=== PATIENT | female | born 1975 | race Caucasian/White ===

== ENCOUNTER 2021-06-22 00:25 | Emergency (ER) | payer MEDICAID, SELFPAY ==
--- NOTE | ~2021-06-22 | CT_ITS ---
EXAMINATION: CT ABDOMEN AND PELVIS WITH CONTRAST CLINICAL INFORMATION: Diarrhea, left-sided abdominal pain COMPARISON: None TECHNIQUE: Multidetector volumetric images were obtained from the superior aspect of the liver through the pubic symphysis following administration 85 mL of Omnipaque 350 intravenous contrast. Sagittal and coronal reformatted images were obtained on the technologist's workstation. Oral contrast: No This CT examination was performed using dose optimization techniques as appropriate, variously including the following: *Automated exposure control *Adjustment of mA and/or kV according to patient size (this includes techniques or standardized protocols for targeted exams where dose is matched to indication/reason for exam; i.e. extremities or head) *Use of iterative reconstruction technique DLP: 601 mGy-cm FINDINGS: LUNG BASES: There is a 3 mm left lower lobe nodule on image 9/90. LIVER, GALLBLADDER, AND BILIARY TREE: The liver is normal in size, shape, and attenuation. No focal hepatic lesion or biliary ductal dilatation is present. The gallbladder is unremarkable with no evidence of radiopaque gallstones, gallbladder wall thickening, or obvious pericholecystic inflammatory changes. PANCREAS: Unremarkable. SPLEEN: Unremarkable. ADRENAL GLANDS: Unremarkable. KIDNEYS AND URETERS: Bilateral nephrograms are symmetric. No hydronephrosis or obstructing calculus identified. BLADDER: There is diffuse mural prominence, suspected to be due to underdistention. GASTROINTESTINAL TRACT: Postoperative changes from gastric bypass surgery. There is fluid distention of several loops of small bowel as well as distention of much of the colon with gas and fluid. No significant bowel wall thickening is seen. Appendix appears nondilated. No free fluid or free air is seen. ABDOMINAL WALL: No significant hernia is appreciated. LYMPH NODES: Normal. VASCULAR: Unremarkable. PELVIC VISCERA: Unremarkable. OSSEOUS STRUCTURES: Multilevel endplate osteophytes are present in the spine. CT/CT abdomen pelvis w con IMPRESSION: 1. Distention of segments of small and large bowel, more suggestive of ileus than obstruction. No significant bowel wall thickening identified. Status post gastric bypass surgery. 2. Left lower lobe 3 mm lung nodule, nonspecific. According to the UPDATED 2017 Fleischner Society recommendations, the advised follow-up imaging for solid nodules < 6 mm is: LOW RISK PATIENT: No routine follow-up. HIGH RISK PATIENT: Optional CT at 12 months. Fleischner guidelines were followed.
[2021-06-22 00:35] VITALS: BP 147/77; PULSE 64; RESP 14; TEMP 36.4; O2SAT 98; BMI 28.1
--- NOTE | 2021-06-22 00:49 | ED.ABDPAIN ---
HPI - Abdominal Pain General Chief Complaint: Abdominal Pain Stated Complaint: abd pain & inflammation, n/d (gastric bypass pt) Time Seen by Provider: 06/22/21 00:46 Source: patient Mode of arrival: ambulatory Limitations: no limitations History of Present Illness MD elicited complaint: abdominal pain Pertinent past history: other (gastric bypass 3 years ago [facility] [place] Onset (ago): day(s) (Saturday) Pain Consistency: intermittent Location: LUQ Severity: moderate Quality: stabbing Radiation: LUQ Migration to: no migration Exacerbating factors: eating and movement Relieving factors: nothing Associated symptoms: nausea and diarrhea Related Data Previous Rx's Medication Instructions Recorded ondansetron 4 mg disintegrating 4 mg PO Q8H PRN #20 tab 06/22/21 tablet Allergies Allergy/AdvReac Type Severity Reaction Status Date / Time penicillin V Allergy Unknown throat Verified 02/10/14 00:00 closes up Penicillins [PENICILLINS] Allergy Unknown THROAT Unverified 01/28/20 17:40 CLOSES AND RASH Review of Systems Review of Systems Constitutional : No Weight loss, No Fever, No Chills ENT/Mouth : No sore throat, No Rhinorrhea Eyes: No Swelling, No Redness Cardiovascular : No Chest Pain, No SOB, NoEdema Respiratory : No Cough, No Sputum, No Wheezing Gastrointestinal : Positive Nausea, no Vomiting, positive Diarrhea, positive abdominal Pain, No Hematochezia, No Melena Genitourinary : No Dysuria, No Urinary Frequency, No Hematuria, No Urgency Musculoskeletal : No joint pain, No Myalgias, No Joint Swelling Skin : No Skin Lesions, No rash Neuro : No Weakness, No Numbness, No Dizziness, No Headache Psych : No Anxiety/Panic, No Depression Heme/Lymph: No Bruising, No Lymphadenopathy Endocrine : No Polyuria, No Polydipsia All other systems reviewed and are negative. Physical Exam Vital Signs: Vital Signs: Last Vital Signs Temp 98.2 F 06/22/21 00:52 Pulse 67 06/22/21 00:52 Resp 16 06/22/21 00:52 BP 155/81 H 06/22/21 00:52 Pulse Ox 99 06/22/21 00:52 BMI result Body Mass Index 28.1 Appearance: Alert. Oriented X3. No acute distress. Eyes: Pupils equal, round and reactive to light. ENT: Pharynx normal. Neck: Normal inspection. Neck supple. CVS: Normal heart rate and rhythm. Pulses normal. Respiratory: No respiratory distress. Breath sounds normal. Abdomen: Soft but noted mild distention - ttp in L side of abdomen no rebound Skin: Skin warm and dry. Normal skin color. Normal skin turgor. Extremities: No lower extremity edema. No calf ttp Neuro: Oriented X 3. No motor deficit. No sensory deficit. Course Course Course Narrative: patient with abdominal pain but passing stool, no vomiting, CT scan shows ileus not obstruction at this time message sent to bariatric PA Rigoberto Bruce 230am I wanted to admit the patient for IV hydration, clear liquids, pain control - she declines admission and wants to go home she will call her own surgeon today. I told her to return if the pain worsens as this could be an obstruction. MDM - Abdominal Pain MDM Narrative Medical decision making narrative: 45 yo female with hx of laparascopic gastric bypass 3 years ago notes she has done fine since then reports since Saturday intermittent LUQ pain and L sided pain that has worsened with diarrhea - no recent food exposures, sick contacts or antibiotic use. No prior colitis/diverticulitis. Labs, IVF x 2L, IV morphine for pain, CT scan for colitis/diverticulitis. Dispo per results and findings. Lab Data Result diagrams: 06/22/21 00:45 06/22/21 00:45 Labs: Lab Results 06/22/21 06/22/21 06/22/21 Range/Units 00:43 00:45 00:45 WBC 7.8 (4.8-10.8) X10*3/uL RBC 4.21 (4.20-5.50) X10*6/uL Hgb 11.2 L (12.0-16.0) g/dl Hct 35.1 L (37.0-47.0) % MCV 83.4 (80.0-98.0) fL MCH 26.6 L (27.0-33.0) pg MCHC 31.9 (31.0-35.0) g/dl RDW 13.4 (11.0-16.0) % Plt Count 341 (160-400) X10*3/uL MPV 10.3 (9.4-12.3) fL Immature Gran % (Auto) 0.1 (0.0-0.4) % Neut % (Auto) 49.0 (45-73) % Lymph % (Auto) 30.4 (20-40) % [place] % (Auto) 10.9 (2-11) % Eos % (Auto) 9.1 H (0-4) % Baso % (Auto) 0.5 (0-2) % Lymph # (Auto) 2.4 (1.2-4.9) X10*3/uL [place] # (Auto) 0.9 (0.1-1.2) X10*3/uL Eos # (Auto) 0.7 H (0.0-0.4) X10*3/uL Baso # (Auto) 0.0 (0.0-0.2) X10*3/uL Abs Immat Gran (auto) 0.01 (0.00-0.03) X10*3/uL Absolute Neuts (auto) 3.8 (2.0-8.3) x10*3/uL Absolute Nucleated RBC 0.000 (0.0-0.012) X10*3/uL Nucleated RBC % (auto) 0.0 (0.0-0.2) /100WBC Sodium 136 (135-145) mmol/L Potassium 3.8 (3.3-5.1) mmol/L Chloride 104 (96-108) mmol/L Carbon Dioxide 24 (22-29) mmol/L Anion Gap 12 (12-20) BUN 16 (9-16) mg/dL Creatinine 0.80 (0.5-1.4) mg/dL Estim Creat Clear Calc 87.7 Estimated GFR > 60 Random Glucose 109 (60-115) mg/dL Lactic Acid (0.5-2.0) mmol/L Calcium 9.2 (8.4-10.2) mg/dL Total Bilirubin 0.6 (0.0-1.0) mg/dL Direct Bilirubin 0.2 (0.0-0.5) mg/dL AST 24 (5-31) U/L ALT 17 (0-31) U/L Alkaline Phosphatase 81 (39-117) U/L Total Protein 7.0 (6.5-8.0) g/dL Albumin 4.1 (3.5-5.0) g/dL Lipase 31 (8-78) U/L Urine Color Urine Appearance Urine pH (5.0-8.0) Ur Specific [place] (1.005-1.025) Urine Protein (NEG-TRACE) MG/DL Urine Glucose (UA) (NEG) MG/DL Urine Ketones (NEG) MG/DL Urine Blood (NEG) Urine Nitrite (NEG) Ur Leukocyte Esterase (NEG) Urine Test (NEGATIVE) COVID-19 (JOSÉ MIGUEL) Negative (Negative) COVID-19 Clin Com See Note 06/22/21 06/22/21 06/22/21 Range/Units 01:26 01:26 01:26 WBC (4.8-10.8) X10*3/uL RBC (4.20-5.50) X10*6/uL Hgb (12.0-16.0) g/dl Hct (37.0-47.0) % MCV (80.0-98.0) fL MCH (27.0-33.0) pg MCHC (31.0-35.0) g/dl RDW (11.0-16.0) % Plt Count (160-400) X10*3/uL MPV (9.4-12.3) fL Immature Gran % (Auto) (0.0-0.4) % Neut % (Auto) (45-73) % Lymph % (Auto) (20-40) % [place] % (Auto) (2-11) % Eos % (Auto) (0-4) % Baso % (Auto) (0-2) % Lymph # (Auto) (1.2-4.9) X10*3/uL [place] # (Auto) (0.1-1.2) X10*3/uL Eos # (Auto) (0.0-0.4) X10*3/uL Baso # (Auto) (0.0-0.2) X10*3/uL Abs Immat Gran (auto) (0.00-0.03) X10*3/uL Absolute Neuts (auto) (2.0-8.3) x10*3/uL Absolute Nucleated RBC (0.0-0.012) X10*3/uL Nucleated RBC % (auto) (0.0-0.2) /100WBC Sodium (135-145) mmol/L Potassium (3.3-5.1) mmol/L Chloride (96-108) mmol/L Carbon Dioxide (22-29) mmol/L Anion Gap (12-20) BUN (9-16) mg/dL Creatinine (0.5-1.4) mg/dL Estim Creat Clear Calc Estimated GFR Random Glucose (60-115) mg/dL Lactic Acid 0.8 (0.5-2.0) mmol/L Calcium (8.4-10.2) mg/dL Total Bilirubin (0.0-1.0) mg/dL Direct Bilirubin (0.0-0.5) mg/dL AST (5-31) U/L ALT (0-31) U/L Alkaline Phosphatase (39-117) U/L Total Protein (6.5-8.0) g/dL Albumin (3.5-5.0) g/dL Lipase (8-78) U/L Urine Color YELLOW Urine Appearance HAZY Urine pH 5.5 (5.0-8.0) Ur Specific [place] >= 1.030 H (1.005-1.025) Urine Protein NEG (NEG-TRACE) MG/DL Urine Glucose (UA) NEG (NEG) MG/DL Urine Ketones 15 (NEG) MG/DL Urine Blood NEG (NEG) Urine Nitrite NEG (NEG) Ur Leukocyte Esterase NEG (NEG) Urine Test NEGATIVE (NEGATIVE) COVID-19 ([facility]OS[facility] MIGUEL) (Negative) COVID-19 Clin Com Discharge Plan Discharge Clinical Impression: Ileus Abdominal pain Qualifiers: Abdominal location: left upper quadrant Qualified Code(s): R10.12 - Left upper quadrant pain Patient Disposition: Home, Self-Care Instructions: Abdominal Pain (ED), Ileus (ED) Additional Instructions: return to ED for any worsening symptoms or concerns you were offered admission but declined. if your pain worsens please come back this could mean your bowel is obstructed. for the next 24 hours please stick to a clear liquid diet call your bariatric surgeon today 1.? Distention of segments of small and large bowel, more suggestive of ileus than obstruction. No significant bowel wall thickening identified. Status post gastric bypass surgery. 2.? Left lower lobe 3 mm lung nodule, nonspecific. According to the UPDATED 2017 Fleischner Society recommendations, the advised follow-up imaging for solid nodules < 6 mm is: ?? LOW RISK PATIENT: No routine follow-up. ?? HIGH RISK PATIENT: Optional CT at 12 months. Prescriptions: New ondansetron 4 mg tablet,disintegrating 4 mg PO Q8H PRN (Reason: nausea and vomiting) Qty: 20 0RF Stand Alone Forms: Work/School Release [facility]LY [facility] Past Medical History Attestation statement: The following information was validated with the patient. Medical History (Updated 06/22/21 @ 02:22 by Glo Azar DO) HTN (hypertension) Surgical History (Updated 06/22/21 @ 02:24 by Glo Azar DO) H/O gastric bypass Social History Social History (Updated 06/22/21 @ 01:04 by Glo Azar DO) Patient Tobacco Use Status: Never used Tobacco Advance Directives: No Patient : No
[2021-06-22 00:52] VITALS: BP 155/81; PULSE 67; RESP 16; TEMP 36.8; O2SAT 99
[2021-06-22 00:54] LABS: MANUAL DIFF FLAG NO
[2021-06-22 00:55] LABS: Basophils Percent Auto 0.5 % (0-2); Eosinophils Absolute Auto 0.7 X10*3/uL (0.0-0.4); Eosinophils Percent Auto 9.1 % (0-4); Hematocrit 35.1 % (37.0-47.0); Hemoglobin 11.2 g/dl (12.0-16.0); Imm Gran Abs Auto 0.01 X10*3/uL (0.00-0.03); Imm Gran Pct Auto 0.1 % (0.0-0.4); Lymphocytes Absolute Auto 2.4 X10*3/uL (1.2-4.9); Lymphocytes Percent Auto 30.4 % (20-40); Mean Corpuscular HGB Conc 31.9 g/dl (31.0-35.0); Mean Corpuscular Hemoglobin 26.6 pg (27.0-33.0); Mean Corpuscular Volume 83.4 fL (80.0-98.0); Mean Platelet Volume 10.3 fL (9.4-12.3); Monocytes Absolute Auto 0.9 X10*3/uL (0.1-1.2); Monocytes Percent Auto 10.9 % (2-11); Neutrophils Absolute Auto 3.8 x10*3/uL (2.0-8.3); Platelet Count 341 X10*3/uL (160-400); Red Blood Count 4.21 X10*6/uL (4.20-5.50); Red Cell Distribution Width 13.4 % (11.0-16.0); White Blood Count 7.8 X10*3/uL (4.8-10.8)
[2021-06-22 01:10] LABS: Alanine Aminotransferase 17 U/L (0-31); Albumin Level 4.1 g/dL (3.5-5.0); Alkaline Phosphatase 81 U/L (39-117); Anion Gap 12 (12-20); Aspartate Amino Transferase 24 U/L (5-31); Bilirubin Direct 0.2 mg/dL (0.0-0.5); Bilirubin Total 0.6 mg/dL (0.0-1.0); Blood Urea Nitrogen 16 mg/dL (9-16); Calcium 9.2 mg/dL (8.4-10.2); Carbon Dioxide 24 mmol/L (22-29); Chloride 104 mmol/L (96-108); Creatinine Clr Calc Pharmacy 87.7; Estimated Glomerular Filt Rate > 60; Glucose Random 109 mg/dL (60-115); Lipase 31 U/L (8-78); Potassium 3.8 mmol/L (3.3-5.1); Sodium 136 mmol/L (135-145)
[2021-06-22 01:14] LABS: COVID-19 Test Negative (Negative); IDNOW Serial# 9DD0AD1C
[2021-06-22] MEDS: 0.9 % Sodium Chloride 1,000 ML 999 ML IVCONT (01:32)
[2021-06-22] MEDS: Morphine Sulfate 4 MG/ML CARTRIDGE IVPUSH (01:35)
[2021-06-22] MEDS: ondansetron HCL 4 MG/2 ML VIAL IVPUSH (01:36)
[2021-06-22 01:38] LABS: Appearance Urine HAZY; Color Urine YELLOW; Glucose Urine UA NEG (NEG); Leukocyte Esterase Urine NEG (NEG); Nitrite Urine NEG (NEG); PH 5.5 (5.0-8.0); Specific Gravity - Urine >= 1.030 (1.005-1.025); Urine Blood NEG (NEG); Urine Ketones 15 MG/DL (NEG); Urine Protein NEG (NEG-TRACE)
[2021-06-22 01:39] LABS: UPreg QC Valid YES; Urine Pregnancy NEGATIVE (NEGATIVE)
[2021-06-22 01:49] LABS: Lactic Acid 0.8 mmol/L (0.5-2.0)
[2021-06-22] MEDS: iohexoL 350 MG/ML 100 ML INFUS..BTL 85 ML IV (01:56)
--- NOTE | 2021-06-22 03:29 | PC.NURSE ---
PATIENT NOT WANTING TO START FOR FURTHER TREATMENT. GIVEN IMAGING DISC FOR SURGEON
== END 2021-06-22 03:34 | disposition home or self-care (01) ==
PROVIDERS: Emergency Provider Emergency Medicine; PCP Internal Medicine
DX: K56.7 Ileus, unspecified (principal); R10.12 Left upper quadrant pain; Z98.84 Bariatric surgery status; Z79.899 Other long term (current) drug therapy; Z20.822 Contact with and (suspected) exposure to COVID-19
CPT/HCPCS: 36415; 74177; 80048; 80076; 81003; 81025; 83605; 83690; 85025; 87635; 96361; 96374; 96375; 99284; J2270; J2405; Q9967

== ENCOUNTER 2021-07-21 22:51 | Emergency (ER) | payer MEDICAID, SELFPAY ==
--- NOTE | ~2021-07-21 | XR_ITS ---
EXAMINATION: XR CHEST CLINICAL INFORMATION: Shortness of breath COMPARISON: 05/27/2019 TECHNIQUE: Frontal view of the chest was obtained. FINDINGS: Lung volumes are symmetric. No focal consolidation is seen. No evidence of pneumothorax, pleural effusion, or pulmonary edema. The cardiomediastinal contour is unremarkable. No acute osseous findings are seen. XR/XR chest 1V IMPRESSION: No acute cardiopulmonary findings.
[2021-07-21 22:59] VITALS: BP 185/97; PULSE 90; RESP 24; TEMP 36.5; O2SAT 95; BMI 27.9
--- NOTE | 2021-07-21 23:26 | ED_ITS ---
HPI - SOB/Dyspnea General Chief Complaint: Dyspnea Stated Complaint: diff. breathing Time Seen by Provider: 07/21/21 23:22 Source: patient Mode of arrival: ambulatory Limitations: no limitations History of Present Illness HPI Narrative: patient comes emergency room complaining of an asthma exacerbation. Patient states she has been having exacerbations throughout the last week, but today got worse. Patient used her inhaler and Advair prior to arrival. On arrival, patient feeling overall better. Related Data Previous Rx's Medication Instructions Recorded ondansetron 4 mg disintegrating 4 mg PO Q8H PRN #20 tab 06/22/21 tablet prednisone 50 mg tablet 50 mg PO DAILY #4 tab 07/21/21 albuterol sulfate 90 mcg/actuation 2 puff INHALATION Q4-6H PRN #8.5 g 07/22/21 aerosol inhaler Allergies Allergy/AdvReac Type Severity Reaction Status Date / Time penicillin V Allergy Unknown throat Verified 07/21/21 23:02 closes up Penicillins [PENICILLINS] Allergy Unknown THROAT Verified 07/21/21 23:02 CLOSES AND RASH Review of Systems Review of Systems: Constitutional : No Weight loss, No Fever, No Chills, No Night Sweats, No Fatigue, No Malaise ENT/Mouth : No Hearing loss, No Ear Pain, No Nasal Congestion, No Sinus Pain, No Hoarseness, No sore throat, No Rhinorrhea, No Swallowing Difficulty Eyes: No Eye Pain, No Swelling, No Redness, No Foreign Body, No Discharge, No Vision Changes Cardiovascular : No Chest Pain, , no orthopnea, no edema or palpitations Respiratory : Complaining of dry cough, wheezing, shortness of breath Gastrointestinal : No Nausea, No Vomiting, No Diarrhea, No Constipation, No abdominal Pain, No Hematochezia, No Melena Genitourinary : no irregular bleeding, No Dysuria, No Urinary Frequency, No Hematuria, No Urinary Incontinence, No Urgency, No Flank Pain, No Urinary Flow Changes, No Hesitancy Musculoskeletal : No joint pain, No Myalgias, No Joint Swelling Skin : No Skin Lesions, No rash Neuro : No Weakness, No Numbness, No Paresthesias, No Loss of Consciousness, No Dizziness, No Headache Psych : No Anxiety/Panic, No Depression, No SI/HI/AH/VH, No Social Issues, Heme/Lymph: No Bruising, No Bleeding,No Lymphadenopathy Endocrine : No Polyuria, No Polydipsia, No Temperature Intolerance FOR[facility]LY [facility] Past Medical History Medical History Asthma HTN (hypertension) Surgical History H/O gastric bypass Social History Social History (Updated 06/22/21 @ 01:04 by Glo Azar DO) Patient Tobacco Use Status: Never used Tobacco Advance Directives: No Advance Directives Information Provided: Yes Patient : No Physical Exam Vital Signs: Vital Signs: Last Vital Signs Temp 97.7 F 07/21/21 22:59 Pulse 82 07/21/21 23:36 Resp 20 07/21/21 23:36 BP 185/97 H 07/21/21 22:59 Pulse Ox 95 07/21/21 22:59 BMI result Body Mass Index 27.9 Const: Other: Appearance: Alert. Oriented X3. No acute distress. Eyes: Pupils equal, round and reactive to light. ENT: Pharynx normal. no erythema, no edema Neck: Normal inspection. Neck supple. No lymph nodes noted. No crepitus CVS: Normal heart rate and rhythm. Pulses normal. Normal S1 and S2 Respiratory: No respiratory distress. Breath sounds normal. very minimal wheezing, speaking in full sentences, good air movement Abdomen: Soft and nontender. No rigidity. No distention. Skin: Skin warm and dry. Normal skin color. Normal skin turgor. Extremities: No lower extremity edema. No Lacerations. No Rash Neuro: Oriented X 3. No motor deficit. No sensory deficit. Moving all extermities. No slurred speech. CN 2 through 12 grossly intact Course Course Course Narrative: patient receiving oral prednisone and breathing treatment. Patient receiving oral prednisone and was in nebulization treatment. Chest x-ray reviewed by me within normal limits MDM - SOB/Dyspnea Lab Data Labs: Lab Results 07/21/21 Range/Units 23:04 COVID-19 (JOS[facility] MIGUEL) Negative (Negative) COVID-19 Clin Com See Note Imaging Data Chest x-ray: Radiologist's impression: Lung volumes are symmetric. No focal consolidation is seen. No evidence of pneumothorax, pleural effusion, or pulmonary edema. The cardiomediastinal contour is unremarkable. No acute osseous findings are seen. XR/XR chest 1V IMPRESSION: No acute cardiopulmonary findings. Discharge Plan Discharge Clinical Impression: Asthma with exacerbation Patient Disposition: Home, Self-Care Instructions: Asthma (ED) Additional Instructions: Please follow-up with your primary care physician tomorrow. If you have any worsening or new symptoms, please return to the emergency room or call 911 Prescriptions: New prednisone 50 mg tablet 50 mg PO DAILY Qty: 4 0RF albuterol sulfate 90 mcg/actuation HFA aerosol inhaler 2 puff inhalation Q4-6H PRN (Reason: shortness of breath or wheezing) Qty: 8.5 1RF No Action ondansetron 4 mg tablet,disintegrating 4 mg PO Q8H PRN (Reason: nausea and vomiting) Qty: 20 0RF
[2021-07-21 23:34] LABS: COVID-19 Test Negative (Negative)
[2021-07-21 23:36] VITALS: PULSE 82; RESP 20; O2SAT 95
[2021-07-21] MEDS: Albuterol Sulfate (0.083%) 2.5 MG/3 ML VIAL.NEB 5 MG INHALE (23:36)
[2021-07-21] MEDS: predniSONE 20 MG TABLET 60 MG PO (23:46)
== END 2021-07-22 00:46 | disposition home or self-care (01) ==
PROVIDERS: Emergency Provider Emergency Medicine
DX: J45.901 Unspecified asthma with (acute) exacerbation (principal); I10 Essential (primary) hypertension; Z20.822 Contact with and (suspected) exposure to COVID-19
CPT/HCPCS: 71045; 87635; 94640; 94644; 99283; 99284

== ENCOUNTER 2022-02-24 12:30 | Emergency (ER) | payer MEDICAID, SELFPAY ==
--- NOTE | ~2022-02-24 | XR_ITS ---
EXAMINATION: XR CHEST CLINICAL INFORMATION: Chest pain COMPARISON: Chest 07/21/2021 TECHNIQUE: Frontal view of the chest was obtained. FINDINGS: No significant abnormality is noted involving the heart, lungs, mediastinum, bony thorax or soft tissues. XR/XR chest 1V IMPRESSION: Unremarkable chest examination.
--- NOTE | 2022-02-24 12:35 | ECG_ITS ---
Test Reason : CHEST PAIN Blood Pressure : / mmHG Vent. Rate : 068 BPM Atrial Rate : 068 BPM P-R Int : 152 ms QRS Dur : 074 ms QT Int : 396 ms P-R-T Axes : 062 058 046 degrees QTc Int : 421 ms Normal sinus rhythm Nonspecific ST abnormality Septal leads Abnormal ECG When compared with ECG of 30-JAN-2016 11:10, No significant change was found Referred By: Generic ED Physician Electronically Signed By:PRESTON CAROLINA MD
[2022-02-24 12:36] VITALS: BP 165/71; PULSE 68; RESP 16; TEMP 36.4; O2SAT 98; BMI 27.4
[2022-02-24 12:57] LABS: MANUAL DIFF FLAG NO
[2022-02-24 12:58] LABS: Basophils Absolute Auto 0.1 X10*3/uL (0.0-0.2); Basophils Percent Auto 0.9 % (0-2); Eosinophils Absolute Auto 0.4 X10*3/uL (0.0-0.4); Eosinophils Percent Auto 6.8 % (0-4); Hematocrit 31.6 % (37.0-47.0); Imm Gran Abs Auto 0.01 X10*3/uL (0.00-0.03); Imm Gran Pct Auto 0.2 % (0.0-0.4); Lymphocytes Percent Auto 34.4 % (20-40); Mean Corpuscular HGB Conc 31.6 g/dl (31.0-35.0); Mean Corpuscular Hemoglobin 25.1 pg (27.0-33.0); Mean Corpuscular Volume 79.2 fL (80.0-98.0); Mean Platelet Volume 9.5 fL (9.4-12.3); Monocytes Absolute Auto 0.7 X10*3/uL (0.1-1.2); Monocytes Percent Auto 12.1 % (2-11); Neutrophils Absolute Auto 2.7 x10*3/uL (2.0-8.3); Neutrophils Percent Auto 45.6 % (45-73); Platelet Count 347 X10*3/uL (160-400); Red Blood Count 3.99 X10*6/uL (4.20-5.50); Red Cell Distribution Width 15.9 % (11.0-16.0); White Blood Count 5.9 X10*3/uL (4.8-10.8)
[2022-02-24 13:07] LABS: Strep A Nucleic Acid Negative (Negative)
[2022-02-24 13:11] LABS: Anion Gap 13 (12-20); Blood Urea Nitrogen 12 mg/dL (9-16); Carbon Dioxide 27 mmol/L (22-29); Chloride 104 mmol/L (96-108); Creatinine Clr Calc Pharmacy 99.5; Estimated Glomerular Filt Rate > 60; Glucose Random 91 mg/dL (60-115); Potassium 3.9 mmol/L (3.3-5.1); Sodium 140 mmol/L (135-145)
[2022-02-24 13:18] LABS: Troponin-I High Sensitivity < 3.5 ng/L (<3.5-17.0)
[2022-02-24 13:44] LABS: COVID-19 Test Negative (Negative); IDNOW Serial# 16C4AD1C
[2022-02-24 15:11] VITALS: BP 166/85; PULSE 57; RESP 16; TEMP 36.6; O2SAT 98
--- NOTE | 2022-02-24 15:15 | PC.NURSE ---
Per RADHA Andino, pt does not need IV, will give oral steroids instead
--- NOTE | 2022-02-24 15:16 | ED_ITS ---
HPI - General Adult General Chief complaint: General Medical Stated complaint: cp, sore throat Time Seen by Provider: 02/24/22 15:02 Source: patient Mode of arrival: ambulatory Limitations: no limitations History of Present Illness HPI narrative: 46 yo female iwth history of asthma presents to the ER with 2 weeks of cold symptoms, worsening for the last 4 days. She states she has had a cough, sore throat, intermittent wheezing for the last few days. She has been using her albuterol inhaler. She has a dry cough and associated chest pains across her entire chest wall. She denies any fever or chills but generally feels unwell. She has joint and body aches. Denies any difficulty breathing or dyspnea on ex ertion. No nausea, vomiting, abdominal pain. MD complaint: Chest pain, cough, wheezing Onset (ago): week(s) (2) Location: chest and back Severity: moderate Quality: aching Pain Consistency: intermittent Relieving factors: rest Exacerbating factors: movement and other (Coughing) Associated symptoms: cough, headaches and malaise Treatments prior to arrival: none Related Data Previous Rx's Medication Instructions Recorded ondansetron 4 mg disintegrating 4 mg PO Q8H PRN nausea and 06/22/21 tablet vomiting #20 tabs prednisone 50 mg tablet 50 mg PO DAILY #4 tabs 07/21/21 albuterol sulfate 90 mcg/actuation 2 puff inhalation Q4-6H PRN 07/22/21 aerosol inhaler shortness of breath or wheezing #8.5 grams albuterol sulfate 90 mcg/actuation 1 inh inhalation QID PRN shortness 02/24/22 aerosol inhaler of breath or wheezing #6.7 grams azithromycin 250 mg tablet See Rx Instructions PO .COMPLEX #6 02/24/22 (Zithromax Z-Kendell) tabs benzonatate 100 mg capsule 100 mg PO TID PRN cough #30 caps 02/24/22 prednisone 20 mg tablet 40 mg PO DAILY #10 tabs 02/24/22 Allergies Allergy/AdvReac Type Severity Reaction Status Date / Time penicillin V Allergy Unknown throat Verified 07/21/21 23:02 closes up Penicillins [PENICILLINS] Allergy Unknown THROAT Verified 07/21/21 23:02 CLOSES AND RASH Review of Systems Review of Systems: Constitutional: No Fever, No Chills ENT/Mouth: + sore throat, No Rhinorrhea, No Swallowing Difficulty Eyes: No Eye Pain, No Swelling, No Redness Cardiovascular: + Chest Pain, No SOB, No Orthopnea, No Edema Respiratory: + Cough, No Sputum, + Wheezing, No dyspnea Gastrointestinal: No Nausea, No Vomiting, No Diarrhea, No abdominal Pain Genitourinary: No Dysuria, No Urinary Frequency, No Hematuria Musculoskeletal: No joint pain, + Myalgias Skin: No Skin Lesions, No rash Neuro: No Weakness, No Numbness, No Dizziness, + Headache Heme/Lymph: No Bruising, No Lymphadenopathy PMFSH Past Medical History Medical History Asthma HTN (hypertension) Surgical History H/O gastric bypass Social History Social History (Updated 06/22/21 @ 01:04 by Robyn Azar DO) Patient Tobacco Use Status: Never used Tobacco Advance Directives: No Advance Directives Information Provided: No Physical Exam ED Vital Signs: Vital Signs - 24 hr 02/24/22 12:36 02/24/22 15:11 02/24/22 15:49 Temperature 97.5 F 97.8 F Pulse Rate 68 57 59 Respiratory Rate 16 16 18 Blood Pressure 165/71 H 166/85 H Pulse Oximetry 98 98 Oxygen Delivery Method Room Air Room Air BMI result Body Mass Index 27.4 Appearance: Alert. Oriented X3. No acute distress. Eyes: Pupils equal, round and reactive to light. ENT: Pharynx normal. Neck: Normal inspection. Neck supple. CVS: Normal heart rate and rhythm. Pulses normal. Respiratory: No respiratory distress. Breath sounds with scattered expiratory wheezes throughout, speaks in complete sentences. Abdomen: Soft and nontender. +BS x4 Skin: Skin warm and dry. Normal skin color. Normal skin turgor. No rashes. Extremities: No lower extremity edema. No calf tenderness. Neuro: Oriented X 3. No motor deficit. No sensory deficit. Steady gait Course Course Course Narrative: 46-year-old female with history of mild intermittent asthma presents to the ER for evaluation of 2 weeks of URI symptoms, intermittent wheezing associated with cough and chest pain. On arrival to the ER she is afebrile, hemodynamically stable with expiratory wheezes throughout. She is not in respiratory distress and able to speak in complete sentences. Her initial lab workup from triage shows no leukocytosis. Troponin is negative an EKG without ischemic changes. Doubt cardiac etiology. Perc negative. Her chest x-ray is clear. She is negative for COVID. Given her duration of symptoms will also check a Monospot, influenza. Will treat her with a dose of oral steroids and 10 mg of inhaled albuterol. Anticipate discharge home. Reevaluation(s) Reevaluation #1: Aeration significantly improved after albuterol and steroids. She is feeling much better. She is stable for discharge home. Will treat for acute asthma exacerbation with steroids, Z-Kendell, Tessalon. She would like another albuterol inhaler for home. She is stable for DC, encourage follow-up with her PCP. Return precautions were discussed. Medical Decision Making Lab Data Result diagrams: 02/24/22 12:48 02/24/22 12:48 Labs: Lab Results 02/24/22 02/24/22 02/24/22 Range/Units 12:48 12:48 12:48 WBC 5.9 (4.8-10.8) X10*3/uL RBC 3.99 L (4.20-5.50) X10*6/uL Hgb 10.0 L (12.0-16.0) g/dl Hct 31.6 L (37.0-47.0) % MCV 79.2 L (80.0-98.0) fL MCH 25.1 L (27.0-33.0) pg MCHC 31.6 (31.0-35.0) g/dl RDW 15.9 (11.0-16.0) % Plt Count 347 (160-400) X10*3/uL MPV 9.5 (9.4-12.3) fL Immature Gran % (Auto) 0.2 (0.0-0.4) % Neut % (Auto) 45.6 (45-73) % Lymph % (Auto) 34.4 (20-40) % [place] % (Auto) 12.1 H (2-11) % Eos % (Auto) 6.8 H (0-4) % Baso % (Auto) 0.9 (0-2) % Lymph # (Auto) 2.0 (1.2-4.9) X10*3/uL [place] # (Auto) 0.7 (0.1-1.2) X10*3/uL Eos # (Auto) 0.4 (0.0-0.4) X10*3/uL Baso # (Auto) 0.1 (0.0-0.2) X10*3/uL Abs Immat Gran (auto) 0.01 (0.00-0.03) X10*3/uL Absolute Neuts (auto) 2.7 (2.0-8.3) x10*3/uL Absolute Nucleated RBC 0.000 (0.0-0.012) X10*3/uL Nucleated RBC % (auto) 0.0 (0.0-0.2) /100WBC Sodium 140 (135-145) mmol/L Potassium 3.9 (3.3-5.1) mmol/L Chloride 104 (96-108) mmol/L Carbon Dioxide 27 (22-29) mmol/L Anion Gap 13 (12-20) BUN 12 (9-16) mg/dL Creatinine 0.69 (0.5-1.4) mg/dL Estim Creat Clear Calc 99.5 Estimated GFR > 60 Random Glucose 91 (60-115) mg/dL Calcium 9.0 (8.4-10.2) mg/dL Troponin I High Sens < 3.5 (<3.5-17.0) ng/L COVID-19 ([facility]IGUEL) (Negative) COVID-19 Clin Com Monoscreen (Negative) Influenza Type A (SUE) (Negative) Influenza Type B (SUE) (Negative) Influenza A & B Note S. pyogenes GrpA SUE (Negative) 02/24/22 02/24/22 02/24/22 Range/Units 12:48 12:48 12:48 WBC (4.8-10.8) X10*3/uL RBC (4.20-5.50) X10*6/uL Hgb (12.0-16.0) g/dl Hct (37.0-47.0) % MCV (80.0-98.0) fL MCH (27.0-33.0) pg MCHC (31.0-35.0) g/dl RDW (11.0-16.0) % Plt Count (160-400) X10*3/uL MPV (9.4-12.3) fL Immature Gran % (Auto) (0.0-0.4) % Neut % (Auto) (45-73) % Lymph % (Auto) (20-40) % [place] % (Auto) (2-11) % Eos % (Auto) (0-4) % Baso % (Auto) (0-2) % Lymph # (Auto) (1.2-4.9) X10*3/uL [place] # (Auto) (0.1-1.2) X10*3/uL Eos # (Auto) (0.0-0.4) X10*3/uL Baso # (Auto) (0.0-0.2) X10*3/uL Abs Immat Gran (auto) (0.00-0.03) X10*3/uL Absolute Neuts (auto) (2.0-8.3) x10*3/uL Absolute Nucleated RBC (0.0-0.012) X10*3/uL Nucleated RBC % (auto) (0.0-0.2) /100WBC Sodium (135-145) mmol/L Potassium (3.3-5.1) mmol/L Chloride (96-108) mmol/L Carbon Dioxide (22-29) mmol/L Anion Gap (12-20) BUN (9-16) mg/dL Creatinine (0.5-1.4) mg/dL Estim Creat Clear Calc Estimated GFR Random Glucose (60-115) mg/dL Calcium (8.4-10.2) mg/dL Troponin I High Sens (<3.5-17.0) ng/L COVID-19 ([facility] MIGUEL) Negative (Negative) COVID-19 Clin Com See Note Monoscreen Negative (Negative) Influenza Type A (SUE) (Negative) Influenza Type B (SUE) (Negative) Influenza A & B Note S. pyogenes GrpA SUE Negative (Negative) 02/24/22 Range/Units 15:37 WBC (4.8-10.8) X10*3/uL RBC (4.20-5.50) X10*6/uL Hgb (12.0-16.0) g/dl Hct (37.0-47.0) % MCV (80.0-98.0) fL MCH (27.0-33.0) pg MCHC (31.0-35.0) g/dl RDW (11.0-16.0) % Plt Count (160-400) X10*3/uL MPV (9.4-12.3) fL Immature Gran % (Auto) (0.0-0.4) % Neut % (Auto) (45-73) % Lymph % (Auto) (20-40) % [place] % (Auto) (2-11) % Eos % (Auto) (0-4) % Baso % (Auto) (0-2) % Lymph # (Auto) (1.2-4.9) X10*3/uL [place] # (Auto) (0.1-1.2) X10*3/uL Eos # (Auto) (0.0-0.4) X10*3/uL Baso # (Auto) (0.0-0.2) X10*3/uL Abs Immat Gran (auto) (0.00-0.03) X10*3/uL Absolute Neuts (auto) (2.0-8.3) x10*3/uL Absolute Nucleated RBC (0.0-0.012) X10*3/uL Nucleated RBC % (auto) (0.0-0.2) /100WBC Sodium (135-145) mmol/L Potassium (3.3-5.1) mmol/L Chloride (96-108) mmol/L Carbon Dioxide (22-29) mmol/L Anion Gap (12-20) BUN (9-16) mg/dL Creatinine (0.5-1.4) mg/dL Estim Creat Clear Calc Estimated GFR Random Glucose (60-115) mg/dL Calcium (8.4-10.2) mg/dL Troponin I High Sens (<3.5-17.0) ng/L COVID-19 ([facility]IG[facility]EL) (Negative) COVID-19 Clin Com Monoscreen (Negative) Influenza Type A (SUE) Negative (Negative) Influenza Type B (SUE) Negative (Negative) Influenza A & B Note See Note S. pyogenes GrpA SUE (Negative) ECG Data Attestation: I personally reviewed and interpreted this ECG as follows: Prior ECG tracings: available for review Interpretation: Normal sinus rhythm, ventricular rate 60 beats per minute, normal [place] interval, normal QTC, no ST segment elevations or depressions. No significant change from prior. Discharge Plan Discharge Clinical Impression: Acute viral syndrome Patient Disposition: Home, Self-Care Instructions: Viral Syndrome (ED) Additional Instructions: You tested negative for COVID-19 and influenza a and B. Your chest x-ray was negative for pneumonia. Your lab workup was unremarkable. Take the prescribed antibiotic and steroid medication for your lungs. Continue to use your inhaler as needed for wheezing. Take [id number] cold and flu medications as needed for your symptoms. Follow-up with your doctor. If you develop new or worsening symptoms call 911 or come back to the ER for further evaluation. Prescriptions: New prednisone 20 mg tablet 40 mg PO DAILY Qty: 10 0RF azithromycin [Zithromax Z-Kendell] 250 mg tablet See Rx Instructions .ROUTE .COMPLEX Qty: 6 0RF Rx Instructions: take 500 mg today (day 1), then 250 mg for 4 days (days 2-5) benzonatate 100 mg capsule 100 mg PO TID PRN (Reason: cough) Qty: 30 0RF albuterol sulfate 90 mcg/actuation HFA aerosol inhaler 1 inh inhalation QID PRN (Reason: shortness of breath or wheezing) Qty: 6.7 0RF No Action prednisone 50 mg tablet 50 mg PO DAILY Qty: 4 0RF albuterol sulfate 90 mcg/actuation HFA aerosol inhaler 2 puff inhalation Q4-6H PRN (Reason: shortness of breath or wheezing) Qty: 8.5 1RF ondansetron 4 mg tablet,disintegrating 4 mg PO Q8H PRN (Reason: nausea and vomiting) Qty: 20 0RF Interventions: ED Discharge Assessment Last Done: 02/24/22 16:32 Discharge Date/Time: 02/24/22 16:33
[2022-02-24] MEDS: predniSONE 10 MG TABLET 50 MG PO (15:17)
[2022-02-24] MEDS: Acetaminophen 325 MG TABLET 975 MG PO (15:18)
[2022-02-24] MEDS: guaiFEN/Codeine SF 200/20/10ML 10 ML LIQUID PO (15:18)
[2022-02-24 15:31] LABS: Monotest Negative (Negative)
[2022-02-24] MEDS: Albuterol Sulfate 7.5 MG, Albuterol Sulfate (0.083%) 2.5 MG 10 MG INHALE (15:47)
[2022-02-24 15:49] VITALS: PULSE 59; RESP 18; O2SAT 96
[2022-02-24 16:08] LABS: Influenza A Negative (Negative); Influenza B2 Negative (Negative)
== END 2022-02-24 16:33 | disposition home or self-care (01) ==
PROVIDERS: Physician Assistant; Emergency Provider Emergency Medicine; PCP Internal Medicine
DX: B34.9 Viral infection, unspecified (principal); J02.9 Acute pharyngitis, unspecified; Z20.822 Contact with and (suspected) exposure to COVID-19; I10 Essential (primary) hypertension; J45.909 Unspecified asthma, uncomplicated; Z79.899 Other long term (current) drug therapy
CPT/HCPCS: 36415; 71045; 80048; 84484; 85025; 86308; 87502; 87635; 87651; 93005; 94640; 99284

== ENCOUNTER 2022-04-30 17:17 | Emergency (ER) | payer MEDICAID, SELFPAY ==
--- NOTE | ~2022-04-30 | XR_ITS ---
EXAMINATION: XR CHEST CLINICAL INFORMATION: Shortness of breath COMPARISON: None TECHNIQUE: 2 views of the chest were obtained. FINDINGS: No significant abnormality is noted involving the heart, lungs, mediastinum, bony thorax or soft tissues. XR/XR chest 2V IMPRESSION: Unremarkable chest examination.
[2022-04-30 18:04] VITALS: BP 187/81; PULSE 70; RESP 20; TEMP 36.8; O2SAT 98; BMI 27.4
--- NOTE | 2022-04-30 18:06 | ED_ITS ---
HPI - Asthma General Chief Complaint: Dyspnea Stated Complaint: chest and back pain sob Time Seen by Provider: 05/01/22 01:01 Related Data Previous Rx's Medication Instructions Recorded ondansetron 4 mg disintegrating 4 mg PO Q8H PRN nausea and 06/22/21 tablet vomiting #20 tabs prednisone 50 mg tablet 50 mg PO DAILY #4 tabs 07/21/21 albuterol sulfate 90 mcg/actuation 2 puff inhalation Q4-6H PRN 07/22/21 aerosol inhaler shortness of breath or wheezing #8.5 grams albuterol sulfate 90 mcg/actuation 1 inh inhalation QID PRN shortness 02/24/22 aerosol inhaler of breath or wheezing #6.7 grams azithromycin 250 mg tablet See Rx Instructions PO .COMPLEX #6 02/24/22 (Zithromax Z-Kendell) tabs benzonatate 100 mg capsule 100 mg PO TID PRN cough #30 caps 02/24/22 prednisone 20 mg tablet 40 mg PO DAILY #10 tabs 02/24/22 Allergies Allergy/AdvReac Type Severity Reaction Status Date / Time penicillin V Allergy Unknown throat Verified 07/21/21 23:02 closes up Penicillins [PENICILLINS] Allergy Unknown THROAT Verified 07/21/21 23:02 CLOSES AND RASH PMFSH Past Medical History Medical History Asthma HTN (hypertension) Surgical History H/O gastric bypass Social History Social History (Updated 06/22/21 @ 01:04 by Robyn Azar DO) Patient Tobacco Use Status: Never used Tobacco Advance Directives: No Advance Directives Information Provided: No Physical Exam Vital Signs: Vital Signs: Last Vital Signs Temp 98.1 F 04/30/22 22:28 Pulse 82 04/30/22 22:28 Resp 18 04/30/22 22:28 BP 152/64 H 04/30/22 22:28 Pulse Ox 98 04/30/22 22:28 O2 Del Method 04/30/22 22:28 BMI result Body Mass Index 27.4 Course Course Course Narrative: RME: Patient is a 46-year-old female who presents emergency department for evaluation of an asthma exacerbation. She reports symptom onset 1 week ago. Shortness of breath, difficulty breathing, coughing with posterior bilateral rib pain, chest pain during coughing episodes. She has been taking her home inhaler/nebulizer without significant improvement. Lung sounds are tight bilaterally, but does not appear in any distress. No hypoxia. Plan: Labs, chest x-ray, will require nebulizer treatment. Medical Decision Making Lab Data Result Diagrams: 04/30/22 19:11 04/30/22 19:10 Labs: Lab Results 04/30/22 04/30/22 04/30/22 Range/Units 19:10 19:10 19:11 WBC 10.3 (4.8-10.8) X10*3/uL RBC 4.21 (4.20-5.50) X10*6/uL Hgb 10.0 L (12.0-16.0) g/dl Hct 32.3 L (37.0-47.0) % MCV 76.7 L (80.0-98.0) fL MCH 23.8 L (27.0-33.0) pg MCHC 31.0 (31.0-35.0) g/dl RDW 14.7 (11.0-16.0) % Plt Count 393 (160-400) X10*3/uL MPV 10.1 (9.4-12.3) fL Immature Gran % (Auto) 0.4 (0.0-0.4) % Neut % (Auto) 54.5 (45-73) % Lymph % (Auto) 28.7 (20-40) % [place] % (Auto) 8.7 (2-11) % Eos % (Auto) 6.9 H (0-4) % Baso % (Auto) 0.8 (0-2) % Lymph # (Auto) 3.0 (1.2-4.9) X10*3/uL [place] # (Auto) 0.9 (0.1-1.2) X10*3/uL Eos # (Auto) 0.7 H (0.0-0.4) X10*3/uL Baso # (Auto) 0.1 (0.0-0.2) X10*3/uL Abs Immat Gran (auto) 0.04 H (0.00-0.03) X10*3/uL Absolute Neuts (auto) 5.6 (2.0-8.3) x10*3/uL Absolute Nucleated RBC 0.000 (0.0-0.012) X10*3/uL Nucleated RBC % (auto) 0.0 (0.0-0.2) /100WBC Sodium 136 (135-145) mmol/L Potassium 4.5 (3.3-5.1) mmol/L Chloride 106 (96-108) mmol/L Carbon Dioxide 20 L (22-29) mmol/L Anion Gap 15 (12-20) BUN 13 (9-16) mg/dL Creatinine 0.80 (0.5-1.4) mg/dL Estim Creat Clear Calc 85.8 Estimated GFR > 60 Random Glucose 163 H (60-115) mg/dL Calcium 9.2 (8.4-10.2) mg/dL Total Bilirubin 0.3 (0.0-1.0) mg/dL AST 31 (5-31) U/L ALT 18 (0-31) U/L Alkaline Phosphatase 102 (39-117) U/L Troponin I High Sens < 3.5 (<3.5-17.0) ng/L Total Protein 7.5 (6.5-8.0) g/dL Albumin 4.0 (3.5-5.0) g/dL COVID-19 ([facility]) (Negative) COVID-19 Clin Com Influenza Type A (SUE) (Negative) Influenza Type B (SUE) (Negative) Influenza A & B Note 04/30/22 04/30/22 Range/Units 19:14 19:14 WBC (4.8-10.8) X10*3/uL RBC (4.20-5.50) X10*6/uL Hgb (12.0-16.0) g/dl Hct (37.0-47.0) % MCV (80.0-98.0) fL MCH (27.0-33.0) pg MCHC (31.0-35.0) g/dl RDW (11.0-16.0) % Plt Count (160-400) X10*3/uL MPV (9.4-12.3) fL Immature Gran % (Auto) (0.0-0.4) % Neut % (Auto) (45-73) % Lymph % (Auto) (20-40) % [place] % (Auto) (2-11) % Eos % (Auto) (0-4) % Baso % (Auto) (0-2) % Lymph # (Auto) (1.2-4.9) X10*3/uL [place] # (Auto) (0.1-1.2) X10*3/uL Eos # (Auto) (0.0-0.4) X10*3/uL Baso # (Auto) (0.0-0.2) X10*3/uL Abs Immat Gran (auto) (0.00-0.03) X10*3/uL Absolute Neuts (auto) (2.0-8.3) x10*3/uL Absolute Nucleated RBC (0.0-0.012) X10*3/uL Nucleated RBC % (auto) (0.0-0.2) /100WBC Sodium (135-145) mmol/L Potassium (3.3-5.1) mmol/L Chloride (96-108) mmol/L Carbon Dioxide (22-29) mmol/L Anion Gap (12-20) BUN (9-16) mg/dL Creatinine (0.5-1.4) mg/dL Estim Creat Clear Calc Estimated GFR Random Glucose (60-115) mg/dL Calcium (8.4-10.2) mg/dL Total Bilirubin (0.0-1.0) mg/dL AST (5-31) U/L ALT (0-31) U/L Alkaline Phosphatase (39-117) U/L Troponin I High Sens (<3.5-17.0) ng/L Total Protein (6.5-8.0) g/dL Albumin (3.5-5.0) g/dL COVID-19 ([facility]IG[facility]) Negative (Negative) COVID-19 Clin Com See Note Influenza Type A (SUE) Negative (Negative) Influenza Type B (SUE) Negative (Negative) Influenza A & B Note See Note Discharge Plan Discharge Prescriptions: No Action prednisone 50 mg tablet 50 mg PO DAILY Qty: 4 0RF albuterol sulfate 90 mcg/actuation HFA aerosol inhaler 2 puff inhalation Q4-6H PRN (Reason: shortness of breath or wheezing) Qty: 8.5 1RF ondansetron 4 mg tablet,disintegrating 4 mg PO Q8H PRN (Reason: nausea and vomiting) Qty: 20 0RF prednisone 20 mg tablet 40 mg PO DAILY Qty: 10 0RF azithromycin [Zithromax Z-Kendell] 250 mg tablet See Rx Instructions .ROUTE .COMPLEX Qty: 6 0RF Rx Instructions: take 500 mg today (day 1), then 250 mg for 4 days (days 2-5) benzonatate 100 mg capsule 100 mg PO TID PRN (Reason: cough) Qty: 30 0RF albuterol sulfate 90 mcg/actuation HFA aerosol inhaler 1 inh inhalation QID PRN (Reason: shortness of breath or wheezing) Qty: 6.7 0RF
--- NOTE | 2022-04-30 18:08 | ECG_ITS ---
Test Reason : CHEST PAIN SOB Blood Pressure : / mmHG Vent. Rate : 074 BPM Atrial Rate : 074 BPM P-R Int : 132 ms QRS Dur : 078 ms QT Int : 384 ms P-R-T Axes : -01 048 032 degrees QTc Int : 426 ms Normal sinus rhythm Nonspecific T wave changes abnormal ECG When compared with ECG of 24-FEB-2022 12:41, No significant change was found Referred By: Afshan Blunt Electronically Signed By:Bishop Boyd
[2022-04-30 19:19] LABS: MANUAL DIFF FLAG NO
[2022-04-30 19:23] LABS: Basophils Absolute Auto 0.1 X10*3/uL (0.0-0.2); Basophils Percent Auto 0.8 % (0-2); Eosinophils Absolute Auto 0.7 X10*3/uL (0.0-0.4); Eosinophils Percent Auto 6.9 % (0-4); Hematocrit 32.3 % (37.0-47.0); Imm Gran Abs Auto 0.04 X10*3/uL (0.00-0.03); Imm Gran Pct Auto 0.4 % (0.0-0.4); Lymphocytes Percent Auto 28.7 % (20-40); Mean Corpuscular Hemoglobin 23.8 pg (27.0-33.0); Mean Corpuscular Volume 76.7 fL (80.0-98.0); Mean Platelet Volume 10.1 fL (9.4-12.3); Monocytes Absolute Auto 0.9 X10*3/uL (0.1-1.2); Monocytes Percent Auto 8.7 % (2-11); Neutrophils Absolute Auto 5.6 x10*3/uL (2.0-8.3); Neutrophils Percent Auto 54.5 % (45-73); Platelet Count 393 X10*3/uL (160-400); Red Blood Count 4.21 X10*6/uL (4.20-5.50); Red Cell Distribution Width 14.7 % (11.0-16.0); White Blood Count 10.3 X10*3/uL (4.8-10.8)
[2022-04-30 19:36] LABS: COVID-19 Test Negative (Negative); IDNOW Serial# 16C4AD1C; Influenza A Negative (Negative); Influenza B2 Negative (Negative)
[2022-04-30 19:49] LABS: Alanine Aminotransferase 18 U/L (0-31); Alkaline Phosphatase 102 U/L (39-117); Anion Gap 15 (12-20); Aspartate Amino Transferase 31 U/L (5-31); Bilirubin Total 0.3 mg/dL (0.0-1.0); Blood Urea Nitrogen 13 mg/dL (9-16); Calcium 9.2 mg/dL (8.4-10.2); Carbon Dioxide 20 mmol/L (22-29); Chloride 106 mmol/L (96-108); Creatinine Clr Calc Pharmacy 85.8; Estimated Glomerular Filt Rate > 60; Glucose Random 163 mg/dL (60-115); Potassium 4.5 mmol/L (3.3-5.1); Sodium 136 mmol/L (135-145); Total Protein 7.5 g/dL (6.5-8.0)
[2022-04-30 19:54] LABS: Troponin-I High Sensitivity < 3.5 ng/L (<3.5-17.0)
[2022-04-30 22:28] VITALS: BP 152/64; PULSE 82; RESP 18; TEMP 36.7; O2SAT 98
== END 2022-05-01 02:06 | disposition left against medical advice (07) ==
PROVIDERS: Nurse Practitioner Family; Emergency Provider Emergency Medicine
DX: R07.89 Other chest pain (principal); M54.2 Cervicalgia; M54.50 Low back pain, unspecified; R06.02 Shortness of breath; Z20.822 Contact with and (suspected) exposure to COVID-19; Z79.899 Other long term (current) drug therapy
CPT/HCPCS: 36415; 71046; 80053; 84484; 85025; 87502; 87635; 93005; 99283

== ENCOUNTER 2024-02-19 14:45 | Emergency (ER) | payer OTHER, SELFPAY ==
--- NOTE | ~2024-02-19 | CT_ITS ---
EXAMINATION: CT ABDOMEN AND PELVIS WITHOUT CONTRAST CLINICAL INFORMATION: Left-sided pain COMPARISON: None available. TECHNIQUE: Multidetector volumetric imaging was performed from the superior aspect of the liver through the pubic symphysis. Sagittal and coronal reformatted images were obtained on the technologist's workstation. This CT examination was performed using dose optimization techniques as appropriate, variously including the following: *Automated exposure control *Adjustment of mA and/or kV according to patient size (this includes techniques or standardized protocols for targeted exams where dose is matched to indication/reason for exam; i.e. extremities or head) *Use of iterative reconstruction technique DLP: 616 mGy-cm FINDINGS: LUNG BASES: The visualized lung bases are unremarkable. There is a small hiatal hernia. LIVER, GALLBLADDER, AND BILIARY TREE: The liver is normal in size, shape, and attenuation. No focal hepatic lesion or biliary ductal dilatation is present. The gallbladder is unremarkable with no evidence of radiopaque gallstones, gallbladder wall thickening, or obvious pericholecystic inflammatory changes. PANCREAS: Unremarkable. SPLEEN: Unremarkable. ADRENAL GLANDS: Unremarkable. KIDNEYS AND URETERS: The kidneys are normal in size, shape, and attenuation. No hydronephrosis, hydroureter, or calculi seen. No perinephric stranding. BLADDER: Unremarkable. GASTROINTESTINAL TRACT: There is scattered stool and gas seen throughout the colon without significant distention. The small bowel loops are normal caliber. Appendix is not visualized. There are gastric reduction or hiatal hernia surgical changes. No free air or free fluid seen. ABDOMINAL WALL: No significant hernia is appreciated. LYMPH NODES: Normal. VASCULAR: Unremarkable. PELVIC VISCERA: The uterus is anteverted and appears unremarkable. There is a left adnexal simple cyst measuring 2.8 x 2.7 x 2.3 cm. No free fluid seen. There are several phleboliths in the pelvis. OSSEOUS STRUCTURES: Unremarkable. CT/CT abdomen pelvis wo IV con IMPRESSION: Moderate constipation. Postsurgical changes at the GE junction likely from hiatal hernia or gastric reduction surgery. Correlate with clinical exam. Left ovarian 2.8 cm simple cyst . Fleischner guidelines were followed. Electronically signed by: Luis Rosenthal MD 02/19/2024 10:40 PM EDT
[2024-02-19 15:13] VITALS: BP 178/89; PULSE 90; RESP 16; TEMP 36.8; O2SAT 98; BMI 32.6
[2024-02-19 15:58] LABS: MANUAL DIFF FLAG NO
[2024-02-19 16:01] LABS: Appearance Urine Clear; Basophils Percent Auto 0.2 % (0-2); Color Urine Yellow; Eosinophils Percent Auto 0.1 % (0-4); Glucose Urine UA Negative (Negative); Hematocrit 35.4 % (37.0-47.0); Hemoglobin 11.9 g/dl (12.0-16.0); Imm Gran Abs Auto 0.05 X10*3/uL (0.00-0.03); Imm Gran Pct Auto 0.4 % (0.0-0.4); Leukocyte Esterase Urine Small (1+) (Negative); Lymphocytes Absolute Auto 1.4 X10*3/uL (1.2-4.9); Lymphocytes Percent Auto 9.8 % (20-40); Mean Corpuscular HGB Conc 33.6 g/dl (31.0-35.0); Mean Corpuscular Hemoglobin 27.9 pg (27.0-33.0); Mean Corpuscular Volume 83.1 fL (80.0-98.0); Mean Platelet Volume 10.2 fL (9.4-12.3); Monocytes Absolute Auto 1.1 X10*3/uL (0.1-1.2); Neutrophils Absolute Auto 11.3 x10*3/uL (2.0-8.3); Neutrophils Percent Auto 81.5 % (45-73); Nitrite Urine Negative (Negative); PH 6.5 (5.0-9.0); Platelet Count 322 X10*3/uL (160-400); Red Blood Count 4.26 X10*6/uL (4.20-5.50); Red Cell Distribution Width 13.5 % (11.0-16.0); Specific Gravity - Urine <= 1.005 (1.005-1.025); UMIC TRIGGER UACC YES; Urine Blood Negative (Negative); Urine Ketones Negative (Negative); Urine Protein Negative (Neg-Trace); White Blood Count 13.8 X10*3/uL (4.8-10.8)
[2024-02-19 16:02] LABS: UPreg QC Valid YES; Urine Pregnancy NEGATIVE (NEGATIVE)
[2024-02-19 16:09] LABS: Bacteria Urine 1+ (None Seen); Hyaline Casts Urine 0-2 /LPF (0-2); RBC Urine 0-2 /HPF (0-2); Squamous Epithelial Cell Urine 0-2 /HPF (0-2); UACC Culture Trigger YES; WBC Urine 0-5 /HPF (0-5)
[2024-02-19 16:19] LABS: Alanine Aminotransferase 17 U/L (0-31); Albumin Level 3.8 g/dL (3.5-5.0); Alkaline Phosphatase 95 U/L (39-117); Anion Gap 10 (12-20); Aspartate Amino Transferase 18 U/L (5-31); Bilirubin Total 0.8 mg/dL (0.0-1.0); Blood Urea Nitrogen 7 mg/dL (9-16); Calcium 9.2 mg/dL (8.4-10.2); Carbon Dioxide 27 mmol/L (22-29); Chloride 105 mmol/L (96-108); Creatinine Clr Calc Pharmacy 98.7; Estimated Glomerular Filt Rate > 60; Glucose Random 108 mg/dL (60-115); Potassium 3.6 mmol/L (3.3-5.1); Sodium 138 mmol/L (135-145); Total Protein 7.3 g/dL (6.5-8.0)
[2024-02-19 16:26] LABS: HCG Quantitative < 2 mIU/mL
[2024-02-19 20:27] VITALS: BP 146/72; PULSE 72; RESP 17; TEMP 36.7; O2SAT 95
--- NOTE | 2024-02-19 21:06 | ED_ITS ---
HPI - Female Genitourinary General Chief complaint: Urogenital-Female Stated complaint: l flank pain Time Seen by Provider: 02/19/24 20:00 Source: patient Mode of arrival: ambulatory Limitations: no limitations History of Present Illness ED Provider: chip SMITH Narrative: Patient is status post laparoscopic gastric bypass surgery 2019 complaining of left lower abdominal pain since yesterday does have nausea no vomiting no diarrhea no blood in his stool no history of similar pain in the past no history of hemorrhoids Related Data Previous Rx's ?Medication ?Instructions ?Recorded ondansetron 4 mg disintegrating 4 mg PO Q8H PRN nausea and 06/22/21 tablet vomiting #20 tabs prednisone 50 mg tablet 50 mg PO DAILY #4 tabs 07/21/21 albuterol sulfate 90 mcg/actuation 2 puff inhalation Q4-6H PRN 07/22/21 aerosol inhaler shortness of breath or wheezing #8.5 grams albuterol sulfate 90 mcg/actuation 1 inh inhalation QID PRN shortness 02/24/22 aerosol inhaler of breath or wheezing #6.7 grams azithromycin 250 mg tablet See Rx Instructions PO .COMPLEX #6 02/24/22 (Zithromax Z-Kendell) tabs benzonatate 100 mg capsule 100 mg PO TID PRN cough #30 caps 02/24/22 prednisone 20 mg tablet 40 mg (2 x 20 mg) PO DAILY #10 tabs 02/24/22 Allergies Allergy/AdvReac Type Severity Reaction Status Date / Time penicillin V Allergy Unknown throat Verified 02/19/24 15:15 closes up Penicillins [PENICILLINS] Allergy Unknown THROAT Verified 02/19/24 15:15 CLOSES AND RASH Review of Systems 2 Review of Systems: Yes all other systems are reviewed and are negative [facility] Past Medical History Medical History Asthma HTN (hypertension) Surgical History H/O gastric bypass Social History Social History Patient Tobacco Use Status: Never used Tobacco Smoked in Last 30 Days: No Use of substances other than those prescribed or required for medical reasons: No Advance Directives: No Advance Directives Information Provided: No Patient : No Physical Exam 2 Vital Signs: Vital Signs: Last Vital Signs Temp 98.1 F 02/19/24 23:20 Pulse 72 02/19/24 23:20 Resp 17 02/19/24 23:20 BP 146/72 H 02/19/24 23:20 Pulse Ox 95 02/19/24 23:20 O2 Del Method Room Air 02/19/24 23:20 BMI result Body Mass Index 32.6 Appearance: Alert. Oriented X3. No acute distress. Eyes: PERRLA, No Nystagmus ENT: Pharynx normal. Oral Mucosa moist Neck: Normal inspection. Neck supple. CVS: Normal heart rate and rhythm. Pulses normal. Respiratory: No respiratory distress. Equal air entry bilateral, no wheezing/rales/rhonchi Abdomen: Soft and deep tenderness left lower quadrant no rebound tenderness or guarding Bowel sounds are present, no mass palpable, no CVA tenderness Skin: Skin warm and dry. Normal skin color. Normal skin turgor. Extremities: No lower extremity edema. No calf tenderness Neuro: Oriented X 3. Medications Administered Discontinued Medications Generic Name Dose Route Start Last Admin Trade Name Freq PRN Reason Stop Dose Admin Oxycodone HCl 10 mg 02/19/24 22:56 02/19/24 23:16 Oxycodone Hcl Immed Release 5 Mg Tablet PO 02/19/24 22:57 10 mg ONCE ONE Administration Medical Decision Making Medical Decision Making [facility] Narrative: Patient with left lower abdominal tenderness and pain workup showed ovarian cyst Differential Diagnosis Differential Diagnoses: The differential diagnosis associated with the presentation includes UTI/ ovarian cyst/diverticulitis/kidney stone Admission/Observation Consideration of admission/observation: Escalation of care including admission/observation considered Lab Data [facility] Lab Attestation statement: I reviewed the patient's lab results. 02/19/24 15:52 02/19/24 15:52 Labs: Lab Results 02/19/24 Range/Units 15:52 WBC 13.8 H (4.8-10.8) X10*3/uL RBC 4.26 (4.20-5.50) X10*6/uL Hgb 11.9 L (12.0-16.0) g/dl Hct 35.4 L (37.0-47.0) % MCV 83.1 (80.0-98.0) fL MCH 27.9 (27.0-33.0) pg MCHC 33.6 (31.0-35.0) g/dl RDW 13.5 (11.0-16.0) % Plt Count 322 (160-400) X10*3/uL MPV 10.2 (9.4-12.3) fL Immature Gran % (Auto) 0.4 (0.0-0.4) % Neut % (Auto) 81.5 H (45-73) % Lymph % (Auto) 9.8 L (20-40) % [place] % (Auto) 8.0 (2-11) % Eos % (Auto) 0.1 (0-4) % Baso % (Auto) 0.2 (0-2) % Lymph # (Auto) 1.4 (1.2-4.9) X10*3/uL [place] # (Auto) 1.1 (0.1-1.2) X10*3/uL Eos # (Auto) 0.0 (0.0-0.4) X10*3/uL Baso # (Auto) 0.0 (0.0-0.2) X10*3/uL Abs Immat Gran (auto) 0.05 H (0.00-0.03) X10*3/uL Absolute Neuts (auto) 11.3 H (2.0-8.3) x10*3/uL Absolute Nucleated RBC 0.000 (0.0-0.012) X10*3/uL Nucleated RBC % (auto) 0.0 (0.0-0.2) /100WBC Sodium 138 (135-145) mmol/L Potassium 3.6 (3.3-5.1) mmol/L Chloride 105 (96-108) mmol/L Carbon Dioxide 27 (22-29) mmol/L Anion Gap 10 L (12-20) BUN 7 L (9-16) mg/dL Creatinine 0.74 (0.5-1.4) mg/dL Estim Creat Clear Calc 98.7 Estimated GFR > 60 Random Glucose 108 (60-115) mg/dL Calcium 9.2 (8.4-10.2) mg/dL Total Bilirubin 0.8 (0.0-1.0) mg/dL AST 18 (5-31) U/L ALT 17 (0-31) U/L Alkaline Phosphatase 95 (39-117) U/L Total Protein 7.3 (6.5-8.0) g/dL Albumin 3.8 (3.5-5.0) g/dL Beta HCG, Quant < 2 mIU/mL Urine Color Yellow Urine Appearance Clear Urine pH 6.5 (5.0-9.0) Ur Specific [place] <= 1.005 (1.005-1.025) Urine Protein Negative (Neg-Trace) mg/dL Urine Glucose (UA) Negative (Negative) mg/dL Urine Ketones Negative (Negative) mg/dL Urine Blood Negative (Negative) Urine Nitrite Negative (Negative) Ur Leukocyte Esterase Small (1+) H (Negative) Urine RBC 0-2 (0-2) /HPF Urine WBC 0-5 (0-5) /HPF Ur Squamous Epith Cells 0-2 (0-2) /HPF Urine Bacteria 1+ (None Seen) Hyaline Casts 0-2 (0-2) /LPF Urine Test NEGATIVE (NEGATIVE) Independent Interpretation I performed an independent interpretation of an: CT Scan Radiology Impression Discussion of test interpretation with radiology: I have reviewed the radiologist's reading. Radiologist Impression: [place] [id number] CT Scan Report Signed Patient: iRma Moreno MR#: [id number] : 1975 Acct:[id number] Age/Sex: 48 / F ADM Date: 02/19/24 Loc: .ED Attending Dr: Ordering Physician: Zoran Negro MD Date of Service: 02/19/24 Procedure(s): CT abdomen pelvis wo IV con Accession Number(s): [id number] cc: Physician,Unknown ; Zoran Negro MD~ EXAMINATION: CT ABDOMEN AND PELVIS WITHOUT CONTRAST CLINICAL INFORMATION: Left-sided pain COMPARISON: None available. TECHNIQUE: Multidetector volumetric imaging was performed from the superior aspect of the liver through the pubic symphysis. Sagittal and coronal reformatted images were obtained on the technologist's workstation. This CT examination was performed using dose optimization techniques as appropriate, variously including the following: *Automated exposure control *Adjustment of mA and/or kV according to patient size (this includes techniques or standardized protocols for targeted exams where dose is matched to indication/reason for exam; i.e. extremities or head) *Use of iterative reconstruction technique DLP: 616 mGy-cm FINDINGS: LUNG BASES: The visualized lung bases are unremarkable. There is a small hiatal hernia. LIVER, GALLBLADDER, AND BILIARY TREE: The liver is normal in size, shape, and attenuation. No focal hepatic lesion or biliary ductal dilatation is present. The gallbladder is unremarkable with no evidence of radiopaque gallstones, gallbladder wall thickening, or obvious pericholecystic inflammatory changes. PANCREAS: Unremarkable. SPLEEN: Unremarkable. ADRENAL GLANDS: Unremarkable. KIDNEYS AND URETERS: The kidneys are normal in size, shape, and attenuation. No hydronephrosis, hydroureter, or calculi seen. No perinephric stranding. BLADDER: Unremarkable. GASTROINTESTINAL TRACT: There is scattered stool and gas seen throughout the colon without significant distention. The small bowel loops are normal caliber. Appendix is not visualized. There are gastric reduction or hiatal hernia surgical changes. No free air or free fluid seen. ABDOMINAL WALL: No significant hernia is appreciated. LYMPH NODES: Normal. VASCULAR: Unremarkable. PELVIC VISCERA: The uterus is anteverted and appears unremarkable. There is a left adnexal simple cyst measuring 2.8 x 2.7 x 2.3 cm. No free fluid seen. There are several phleboliths in the pelvis. OSSEOUS STRUCTURES: Unremarkable. CT/CT abdomen pelvis wo IV con IMPRESSION: Moderate constipation. Postsurgical changes at the GE junction likely from hiatal hernia or gastric reduction surgery. Correlate with clinical exam. Left ovarian 2.8 cm simple cyst . Fleischner guidelines were followed. Electronically signed by: Luis Rosenthal MD 02/19/2024 10:40 PM EDT RP Discharge Plan Discharge Clinical Impression: Ovarian cyst Patient Disposition: Home, Self-Care Instructions: Ovarian Cyst (ED) Additional Instructions: You have 2.8 cm left ovarian cyst likely the cause for pain Take Tylenol for pain Follow with a dependency counselor Report to the ER if worsening of the pain Prescriptions: No Action prednisone 50 mg tablet 50 mg PO DAILY Qty: 4 0RF albuterol sulfate 90 mcg/actuation HFA aerosol inhaler 2 puff inhalation Q4-6H PRN (Reason: shortness of breath or wheezing) Qty: 8.5 1RF ondansetron 4 mg tablet,disintegrating 4 mg PO Q8H PRN (Reason: nausea and vomiting) Qty: 20 0RF prednisone 20 mg tablet 40 mg PO DAILY Qty: 10 0RF azithromycin [Zithromax Z-Kendell] 250 mg tablet See Rx Instructions .ROUTE .COMPLEX Qty: 6 0RF Rx Instructions: take 500 mg today (day 1), then 250 mg for 4 days (days 2-5) benzonatate 100 mg capsule 100 mg PO TID PRN (Reason: cough) Qty: 30 0RF albuterol sulfate 90 mcg/actuation HFA aerosol inhaler 1 inh inhalation QID PRN (Reason: shortness of breath or wheezing) Qty: 6.7 0RF Interventions: ED Discharge Assessment Last Done: 02/19/24 23:20 Discharge Date/Time: 02/19/24 23:21 Print Language: Maltese
[2024-02-19] MEDS: oxyCODONE HCl Immed Release 5 MG TABLET 10 MG PO (23:16)
[2024-02-19 23:20] VITALS: BP 146/72; PULSE 72; RESP 17; TEMP 36.7; O2SAT 95
== END 2024-02-19 23:21 | disposition home or self-care (01) ==
PROVIDERS: Physician Assistant; Emergency Provider Internal Medicine
DX: N83.292 Other ovarian cyst, left side (principal); R10.32 Left lower quadrant pain; I10 Essential (primary) hypertension; J45.909 Unspecified asthma, uncomplicated; Z79.899 Other long term (current) drug therapy
CPT/HCPCS: 36415; 74176; 80053; 81001; 81025; 84702; 85025; 87086; 99284

== ENCOUNTER 2025-01-15 12:49 | Emergency (ER) | payer SELFPAY ==
--- NOTE | ~2025-01-15 | CT_ITS ---
EXAMINATION: CT ABDOMEN AND PELVIS WITH CONTRAST CLINICAL INFORMATION: Abdominal pain. COMPARISON: 02/19/2024. TECHNIQUE: Multidetector volumetric images were obtained from the superior aspect of the liver through the pubic symphysis following administration 85 mL of Omnipaque 350 intravenous contrast. Sagittal and coronal reformatted images were obtained on the technologist's workstation. Oral contrast: No This CT examination was performed using dose optimization techniques as appropriate, variously including the following: *Automated exposure control *Adjustment of mA and/or kV according to patient size (this includes techniques or standardized protocols for targeted exams where dose is matched to indication/reason for exam; i.e. extremities or head) *Use of iterative reconstruction technique FINDINGS: LUNG BASES: Imaged lung bases are clear bilaterally. There is minimal dependent atelectasis. Heart size is borderline enlarged. No pericardial effusion. There is a stable 3 mm nodule in the left lower lobe. This is benign. There is a small hiatus hernia at the GE junction. LIVER, GALLBLADDER, AND BILIARY TREE: The liver is normal in size, shape, and attenuation. No focal hepatic lesion or biliary ductal dilatation is present. The gallbladder is unremarkable with no evidence of radiopaque gallstones, gallbladder wall thickening, or obvious pericholecystic inflammatory changes. PANCREAS: Unremarkable. SPLEEN: Unremarkable. ADRENAL GLANDS: Unremarkable. KIDNEYS AND URETERS: The kidneys are normal in size, shape, and attenuation. No hydronephrosis, hydroureter, or calculi seen. No perinephric stranding. BLADDER: Urinary bladder is underdistended with mild wall thickening diffusely, nonspecific. GASTROINTESTINAL TRACT: There has been prior gastric bypass surgery. There is a small hiatus hernia. The distal anastomosis is unremarkable. The excluded stomach is normal in appearance. The duodenum is normal. There is no bowel obstruction. Small bowel is normal in caliber and course. Colon demonstrates a mobile cecum. Colon is normal in course and caliber otherwise without wall thickening or inflammation. There is no CT evidence of appendicitis. The rectum is normal. ABDOMINAL WALL: No significant hernia is appreciated. LYMPH NODES: There is no abnormal lymphadenopathy present. VASCULAR: Unremarkable. PELVIC VISCERA: The uterus and ovaries appear normal. OSSEOUS STRUCTURES: There is no suspicious lytic or blastic bone lesion. There are mild spinal degenerative changes. CT/CT abdomen pelvis w IV con IMPRESSION: 1. There are no acute findings in the abdomen or pelvis. 2. The patient has undergone prior gastric bypass. There is a small hiatus hernia above the gastric pouch. 3. There are ancillary findings as discussed in the body of the report. Electronically signed by: Deandre Roque MD 01/15/2025 03:22 PM EDT
--- NOTE | ~2025-01-15 | US_ITS ---
CLINICAL HISTORY: LLQ abd pain US pelvis transabdominal and transvaginal with Doppler Comparison: CT/PA/SR - CT ABDOMEN PELVIS WITH IV CONTRAST - 01/15/25 14:58 EDT Findings: Transabdominal scanning performed for overall anatomy. Transvaginal scanning performed for additional detail. Anteverted uterus is 7.7 cm length. There are 2 small subserosal fibroids within the uterus measuring 1.7 and 1.9 cm in greatest dimension respectively. There are cervical nabothian cysts. Endometrium 1 mm thickness. Right ovary 2.7 x 2.5 x 2.2 cm. Left ovary 2.9 x 1.8 x 3.2 cm. There is a 1.9 x 1.3 x 1.9 cm left ovarian cyst, compatible with a physiologic cyst. Normal color Doppler with arterial/venous spectral tracing of both ovaries. No free fluid. IMPRESSION: 1. No acute abnormality. 2. There are 2 small uterine fibroids. This document has been electronically signed by: Adore Garcia MD on 01/15/2025 18:10:31
--- NOTE | ~2025-01-15 | US_ITS ---
CLINICAL HISTORY: LLQ abd pain US pelvis transabdominal and transvaginal with Doppler Comparison: CT/[place]/SR - CT ABDOMEN PELVIS WITH IV CONTRAST - 01/15/25 14:58 EDT Findings: Transabdominal scanning performed for overall anatomy. Transvaginal scanning performed for additional detail. Anteverted uterus is 7.7 cm length. There are 2 small subserosal fibroids within the uterus measuring 1.7 and 1.9 cm in greatest dimension respectively. There are cervical nabothian cysts. Endometrium 1 mm thickness. Right ovary 2.7 x 2.5 x 2.2 cm. Left ovary 2.9 x 1.8 x 3.2 cm. There is a 1.9 x 1.3 x 1.9 cm left ovarian cyst, compatible with a physiologic cyst. Normal color Doppler with arterial/venous spectral tracing of both ovaries. No free fluid. IMPRESSION: 1. No acute abnormality. 2. There are 2 small uterine fibroids. This document has been electronically signed by: Adore Garcia MD on 01/15/2025 18:10:31
[2025-01-15 12:54] VITALS: BP 177/83; PULSE 71; RESP 16; TEMP 36.6; O2SAT 98; BMI 32.4
--- NOTE | 2025-01-15 12:58 | ED_ITS ---
HPI - General Adult General Chief complaint: Abdominal Pain Stated complaint: l side abd pain Time Seen by Provider: 01/15/25 13:12 Source: patient Mode of arrival: ambulatory Limitations: no limitations History of Present Illness ED Provider: RADHA Mcmahon HPI narrative: This is a 49-year-old female presents with 1 week of left lower quadrant pain with associated diarrhea. Reports pain is severe, intermittent, stabbing. She has never had pain like this before. She denies associated nausea, vomiting, fevers, chills, chest pain, shortness of breath, changes in urinary or bowel habits. No sick contacts. No associated trauma. Reports hx of gastric bypass w/o complications years ago. Related Data Previous Rx's ?Medication ?Instructions ?Recorded ondansetron 4 mg disintegrating 4 mg PO Q8H PRN nausea and 06/22/21 tablet vomiting #20 tabs prednisone 50 mg tablet 50 mg PO DAILY #4 tabs 07/21 albuterol sulfate 90 mcg/actuation 2 puff inhalation Q 4-6H PRN 07/22/21 aerosol inhaler shortness of breath or wheez ing #8.5 grams albuterol sulfate 90 mcg/actuation 1 inh inhalation QI D PRN shortness 02/24/22 aerosol inhaler of breath or wheezing #6.7 g светлана azithromycin 250 mg tablet See Rx Instructions PO .COM PLEX #6 02/24/22 (Zithromax Z-Kendell) tabs benzonatate 100 mg capsule 100 mg PO TID PRN cough #30 caps 02/24/22 prednisone 20 mg tablet 40 mg (2 x 20 mg) PO DAILY # 10 tabs 02/24/22 cefuroxime axetil 250 mg tablet 250 mg PO Q12H #14 tab s 01/15/25 Allergies Allergy/AdvReac Type Severity Reaction Status Date / Time penicillin V Allergy Unknown throat Verified 01/15/25 12:58 closes up Penicillins (PENICILLINS) Allergy Unknown THROAT Verified 01/15/25 12:58 CLOSES AND RASH Review of Systems 2 Review of Systems: Yes all other systems are reviewed and are negative [facility] Past Medical History Attestation statement: The following information was validated with the patient. Source: old records reviewed and nursing notes reviewed Medical History Asthma HTN (hypertension) Surgical History H/O gastric bypass Social History Social History Patient Tobacco Use Status: Never used Tobacco Advance Directives: No Advance Directives Information Provided: Yes Physical Exam ED Exam Exam: Appearance: Alert.? Oriented X3.? No acute distress.? Head: Normocephalic, atraumatic, no step-offs or deformities Eyes: Pupils equal, round and reactive to light.? ENT: Pharynx normal.? Neck: Normal inspection.? Neck supple.? CVS: Normal heart rate and rhythm.? Pulses normal.? Respiratory: No respiratory distress.? Breath sounds normal.? Abdomen: Soft and + LLQ ttp on exam.? Skin: Skin warm and dry.? Normal skin color.? Normal skin turgor.? Extremities: No lower extremity edema.? No calf ttp. 5/5 strength to bilateral upper and lower extremities Neuro: Oriented X 3.? No motor deficit.? No sensory deficit. CN 2-12 intact Vital Signs: Vital Signs - 24 hr 01/15/25 12:54 01/15/25 14:46 01/15/25 18:26 Temperature 97.9 F 98.4 F Pulse Rate 71 65 Respiratory Rate 16 18 14 Blood Pressure 177/83 H 183/87 H Pulse Oximetry 98 99 Oxygen Delivery Method Room Air Room Air BMI result Body Mass Index 32.4 vss Course Course Course Narrative: This is a rapid medical exam performed by Pillo Borrego NP: Additional HPI, ROS, PE not included below will be deferred to primary provider. Patient is a 49-year-old female presenting with complaint of LUQ abdominal pain for months. Plan: Labs Reevaluation(s) Reevaluation #1: CBC with a microcytic anemia appears to be around patient's baseline. Chemistry with no acute findings needing intervention. Normal lipase. UA pending. CT scan pending Time: 14:25 Reevaluation #2: CT abdomen pelvis no acute findings in the abdomen or pelvis. Patient has undergone prior gastric bypass there is a small hiatal hernia above the gastric patch. Ancillary findings as discussed in the body of the report which include degenerative changes in spine however no lytic lesions or blastic bone lesions. I did order an ultrasound of the pelvis as patient's pain is in the left lower quadrant. Time: 17:39 Reevaluation #3: Ultrasound and urine pending. Sign out to Zafar GARCIA Time: 17:46 Medications Administered Discontinued Medications Generic Name Dose Route Start Last Admin Trade Name Meagan PRN Reason Stop Dose Admin Iohexol 100 ml 01/15/25 15:10 01/15/25 15:10 Iohexol 350 Mg/Ml 100 Ml Infus..Btl IV 01/15/25 15:11 85 ml ONCE ONE Administration Morphine Sulfate 4 mg 01/15/25 14:25 01/15/25 14:46 Morphine Sulfate 4 Mg/Ml Cartridge IVPUSH 01/15/25 14:26 4 mg ONCE ONE Administration Protocol Medical Decision Making Medical Decision Making [facility] Narrative: 1423 49-year-old female presents with left lower quadrant abdominal pain and diarrhea ongoing for a week worsening. Physical exam significant left lower quadrant tenderness to palpation on exam. This is likely diverticulitis unlikely ovarian torsion, ectopic , acute abdomen, appendicitis, cholecystitis, pancreatitis. Will rule out metabolic derangements and UTI I do not suspect kidney stone. Plan labs, imaging, urine Differential Diagnosis Differential Diagnoses: The differential diagnosis associated with the presentation includes (This is likely diverticulitis unlikely ovarian torsion, ectopic , acute abdomen, appendicitis, cholecystitis, pancreatitis. Will rule out metabolic derangements and UTI I do not suspect kidney stone.) Admission/Observation Consideration of admission/observation: Escalation of care including admission/observation considered Lab Data [facility] Lab Attestation statement: I reviewed the patient's lab results. 01/15/25 13:09 01/15/25 13:09 Labs: Lab Results 01/15/25 01/15/25 Range/Units 13:09 18:44 WBC 6.0 (4.8-10.8) X10*3/uL RBC 4.29 (4.20-5.50) X10*6/uL Hgb 9.6 L (12.0-16.0) g/dl Hct 31.8 L (37.0-47.0) % MCV 74.1 L (80.0-98.0) fL MCH 22.4 L (27.0-33.0) pg MCHC 30.2 L (31.0-35.0) g/dl RDW 17.2 H (11.0-16.0) % Plt Count 401 H (160-400) X10*3/uL MPV 10.2 (9.4-12.3) fL Immature Gran % (Auto) 0.5 H (0.0-0.4) % Neut % (Auto) 51.8 (45-73) % Lymph % (Auto) 24.5 (20-40) % [place] % (Auto) 18.5 H (2-11) % Eos % (Auto) 4.0 (0-4) % Baso % (Auto) 0.7 (0-2) % Lymph # (Auto) 1.5 (1.2-4.9) X10*3/uL [place] # (Auto) 1.1 (0.1-1.2) X10*3/uL Eos # (Auto) 0.2 (0.0-0.4) X10*3/uL Baso # (Auto) 0.0 (0.0-0.2) X10*3/uL Abs Immat Gran (auto) 0.03 (0.00-0.03) X10*3/uL Absolute Neuts (auto) 3.1 (2.0-8.3) x10*3/uL Absolute Nucleated RBC 0.000 (0.0-0.012) X10*3/uL Nucleated RBC % (auto) 0.0 (0.0-0.2) /100WBC Sodium 139 (135-145) mmol/L Potassium 3.3 (3.3-5.1) mmol/L Chloride 107 (96-108) mmol/L Carbon Dioxide 24 (22-29) mmol/L Anion Gap 11 L (12-20) BUN 9 (9-16) mg/dL Creatinine 0.76 (0.5-1.4) mg/dL Estim Creat Clear Calc 94.7 Estimated GFR > 60 Random Glucose 79 (60-115) mg/dL Calcium 8.8 (8.4-10.2) mg/dL Total Bilirubin 0.4 (0.0-1.0) mg/dL AST 29 (5-31) U/L ALT 19 (0-31) U/L Alkaline Phosphatase 89 (39-117) U/L Total Protein 7.1 (6.5-8.0) g/dL Albumin 4.0 (3.5-5.0) g/dL Lipase 15 (8-78) U/L Urine Color Yellow Urine Appearance Clear Urine pH 6.5 (5.0-9.0) Ur Specific [place] >= 1.030 H (1.005-1.025) Urine Protein Negative (Neg-Trace) mg/dL Urine Glucose (UA) Negative (Negative) mg/dL Urine Ketones 15 (Negative) mg/dL Urine Blood Negative (Negative) Urine Nitrite Positive H (Negative) Ur Leukocyte Esterase Small (1+) H (Negative) Urine RBC 0-2 (0-2) /HPF Urine WBC 0-5 (0-5) /HPF Ur Squamous Epith Cells 0-2 (0-2) /HPF Urine Bacteria 4+ (None Seen) Hyaline Casts 0-2 (0-2) /LPF Independent Interpretation I performed an independent interpretation of an: CT Scan Radiology Impression Discussion of test interpretation with radiology: I have reviewed the radiologist's reading. Critical Care Time Critical Care Time Critical Care Time: Yes Total Critical Care Time: 35 Attestation: I attest to this time spent taking care of the patient, obtaining history, physical, reviewing labs, imaging, treatment of patients condition +/- specialist/hospitalist consult +/- procedure Discharge Plan Discharge Clinical Impression: Abdominal pain, Constipation, Ovarian cyst, UTI (urinary tract infection) Patient Disposition: Home, Self-Care Instructions: Ovarian Cyst (ED), Urinary Tract Infection in Women (ED), Pelvic Pain (ED) Additional Instructions: Your workup showed an ovarian cyst in the left as well as a urinary tract infection. Take the antibiotic twice daily for 7 days. Follow-up with your primary doctor and your OBGYN doctor. Return for new or worsening symptoms Prescriptions: New cefuroxime axetil 250 mg tablet 250 mg PO Q12H Qty: 14 0RF No Action prednisone 50 mg tablet 50 mg PO DAILY Qty: 4 0RF albuterol sulfate 90 mcg/actuation HFA aerosol inhaler 2 puff inhalation Q4-6H PRN (Reason: shortness of breath or wheezing) Qty: 8.5 1RF ondansetron 4 mg tablet,disintegrating 4 mg PO Q8H PRN (Reason: nausea and vomiting) Qty: 20 0RF prednisone 20 mg tablet 40 mg PO DAILY Qty: 10 0RF azithromycin [Zithromax Z-Kendell] 250 mg tablet See Rx Instructions .ROUTE .COMPLEX Qty: 6 0RF Rx Instructions: take 500 mg today (day 1), then 250 mg for 4 days (days 2-5) benzonatate 100 mg capsule 100 mg PO TID PRN (Reason: cough) Qty: 30 0RF albuterol sulfate 90 mcg/actuation HFA aerosol inhaler 1 inh inhalation QID PRN (Reason: shortness of breath or wheezing) Qty: 6.7 0RF Print Language: Setswana
[2025-01-15 13:14] LABS: MANUAL DIFF FLAG NO
[2025-01-15 13:25] LABS: Hematocrit 31.8 % (37.0-47.0); Hemoglobin 9.6 g/dl (12.0-16.0); Imm Gran Abs Auto 0.03 X10*3/uL (0.00-0.03); Imm Gran Pct Auto 0.5 % (0.0-0.4); Lymphocytes Absolute Auto 1.5 X10*3/uL (1.2-4.9); Mean Corpuscular HGB Conc 30.2 g/dl (31.0-35.0); Mean Corpuscular Hemoglobin 22.4 pg (27.0-33.0); Mean Corpuscular Volume 74.1 fL (80.0-98.0); NRBC Abs Auto 0.000 X10*3/uL (0.0-0.012); NRBC Pct Auto 0.0 /100WBC (0.0-0.2); Platelet Count 401 X10*3/uL (160-400); Red Blood Count 4.29 X10*6/uL (4.20-5.50); White Blood Count 6.0 X10*3/uL (4.8-10.8)
[2025-01-15 13:40] LABS: Alanine Aminotransferase 19 U/L (0-31); Albumin Level 4.0 g/dL (3.5-5.0); Alkaline Phosphatase 89 U/L (39-117); Anion Gap 11 (12-20); Aspartate Amino Transferase 29 U/L (5-31); Blood Urea Nitrogen 9 mg/dL (9-16); Calcium 8.8 mg/dL (8.4-10.2); Carbon Dioxide 24 mmol/L (22-29); Chloride 107 mmol/L (96-108); Creatinine Clr Calc Pharmacy 94.7; Estimated Glomerular Filt Rate > 60; Lipase 15 U/L (8-78); Potassium 3.3 mmol/L (3.3-5.1); Sodium 139 mmol/L (135-145); Total Protein 7.1 g/dL (6.5-8.0)
[2025-01-15 14:46] VITALS: RESP 18
[2025-01-15] MEDS: iohexoL 350 MG/ML 100 ML INFUS..BTL IV (15:10)
[2025-01-15 18:26] VITALS: BP 183/87; PULSE 65; RESP 14; TEMP 36.9; O2SAT 99
[2025-01-15 18:50] LABS: Appearance Urine Clear; Glucose Urine UA Negative (Negative); PH 6.5 (5.0-9.0); Specific Gravity - Urine >= 1.030 (1.005-1.025); UMIC TRIGGER UACC YES
[2025-01-15 19:10] LABS: UACC Culture Trigger YES
[2025-01-15 20:02] VITALS: BP 183/87; PULSE 65; RESP 14; TEMP 36.9; O2SAT 99
== END 2025-01-15 20:02 | disposition home or self-care (01) ==
PROVIDERS: Physician Assistant; Registered Nurse Emergency; Emergency Provider Emergency Medicine; PCP Internal Medicine
DX: N39.0 Urinary tract infection, site not specified (principal); N83.209 Unspecified ovarian cyst, unspecified side; K59.00 Constipation, unspecified; I10 Essential (primary) hypertension; Z98.84 Bariatric surgery status; Z79.899 Other long term (current) drug therapy
CPT/HCPCS: 36415; 74177; 76830; 76856; 80053; 81001; 83690; 85025; 87086; 87088; 87186; 93975; 96374; 99283; 99284; 99285; J2270; Q9967

== ENCOUNTER → 2025-01-15 14:16 | Outpatient (BNV) | payer OTHER, SELFPAY | PROVIDERS: Emergency Provider Emergency Medicine; PCP Internal Medicine; Visit Provider Radiology Diagnostic Radiology | DX: K44.9 Diaphragmatic hernia without obstruction or gangrene (principal); R10.30 Lower abdominal pain, unspecified | CPT/HCPCS: 74177; 93975 ==

== ENCOUNTER 2025-02-22 14:46 | Inpatient (IN) | payer OTHER, SELFPAY ==
--- NOTE | ~2025-02-22 | CT_ITS ---
CLINICAL HISTORY: left sided abd pain CT abdomen and pelvis with contrast Comparison: CT/[place]/SR - CT ABDOMEN PELVIS WITH IV CONTRAST - 01/15/25 14:58 EDT Findings: Small paraesophageal hernia. The liver and spleen are homogeneous in attenuation. The left and right kidney demonstrate symmetric corticomedullary enhancement. The pancreas is within normal limits. No bowel obstruction identified. The appendix is dilated, 1.5 cm, with periappendiceal inflammatory changes. The uterus is within normal limits. Right ovarian homogeneous low-attenuation lesion, 2.1 cm. The bones are intact. IMPRESSION: 1. Dilated appendix (1.5 cm) with periappendiceal inflammatory changes, consistent with acute appendicitis. Clinical correlation suggested. 2. Right ovarian cysts, 2.1 cm. 3. Small paraesophageal hernia. This document has been electronically signed by: King Crowley MD on 02/22/2025 21:32:15
[2025-02-22 14:51] VITALS: BP 152/75; PULSE 81; RESP 16; TEMP 36.3; O2SAT 100; BMI 32.1
--- NOTE | 2025-02-22 15:04 | ED_ITS ---
HPI - General Adult General Chief complaint: Abdominal Pain Stated complaint: abd pain Time Seen by Provider: 02/22/25 17:27 Related Data Previous Rx's ?Medication ?Instructions ?Recorded ondansetron 4 mg disintegrating 4 mg PO Q8H PRN nausea and 06/22/21 tablet vomiting #20 tabs prednisone 50 mg tablet 50 mg PO DAILY #4 tabs 07/21 albuterol sulfate 90 mcg/actuation 2 puff inhalation Q 4-6H PRN 07/22/21 aerosol inhaler shortness of breath or wheez ing #8.5 grams albuterol sulfate 90 mcg/actuation 1 inh inhalation QI D PRN shortness 02/24/22 aerosol inhaler of breath or wheezing #6.7 g светлана azithromycin 250 mg tablet See Rx Instructions PO .COM PLEX #6 02/24/22 (Zithromax Z-Kendell) tabs benzonatate 100 mg capsule 100 mg PO TID PRN cough #30 caps 02/24/22 prednisone 20 mg tablet 40 mg (2 x 20 mg) PO DAILY # 10 tabs 02/24/22 cefuroxime axetil 250 mg tablet 250 mg PO Q12H #14 tab s 01/15/25 Allergies Allergy/AdvReac Type Severity Reaction Status Date / Time penicillin V Allergy Unknown throat Verified 02/22/25 14:54 closes up Penicillins (PENICILLINS) Allergy Unknown THROAT Verified 02/22/25 14:54 CLOSES AND RASH PMFSH Past Medical History Medical History Asthma HTN (hypertension) Surgical History H/O gastric bypass Social History Social History Unable to assess alcohol history related to: Unknown Patient Tobacco Use Status: Never used Tobacco Advance Directives: No Advance Directives Information Provided: No Do you have a plan to hurt others: No Plan Physical Exam ED Vital Signs: Vital Signs - 24 hr 02/22/25 14:51 02/22/25 18:00 Temperature 97.4 F 98.3 F Pulse Rate 81 78 Respiratory Rate 16 18 Blood Pressure 152/75 H 191/94 H Pulse Oximetry 100 98 Oxygen Delivery Method Room Air Room Air BMI result Body Mass Index 32.1 Course Course Course Narrative: Rapid medical examination performed in triage by Fatmata Montano PA-C. Patient is a 49 year old assigned female at presenting to the emergency department with abdominal pain. Detailed physical exam and review of systems are deferred to the behavior clinician. EKG, labs, and swabs ordered. Patient placed back in the waiting room pending room availability and results. Medications Administered Discontinued Medications Generic Name Dose Route Start Last Admin Trade Name Freq PRN Reason Stop Dose Admin Hydromorphone HCl 0.5 mg 02/22/25 18:14 02/22/25 18:32 Hydromorphone Hcl 0.5 Mg/0.5 Ml Syringe IVPUSH 02/22/25 18:15 0.5 mg ONCE ONE Administration Protocol Sodium Chloride 1,000 mls @ 999 mls/hr 02/22/25 18:15 02/22/25 19:59 Ns IV 02/22/25 19:15 Infused .Q1H1M NEHEMIAH Infusion Iohexol 85 ml 02/22/25 20:26 02/22/25 20:27 Iohexol 350 Mg/Ml 100 Ml Infus..Btl IV 02/22/25 20:27 85 ml ONCE ONE Administration Ondansetron HCl 4 mg 02/22/25 18:14 02/22/25 18:32 Ondansetron Hcl 4 Mg/2 Ml Vial IVPUSH 02/22/25 18:15 4 mg ONCE ONE Administration Medical Decision Making Lab Data 02/22/25 15:16 02/22/25 15:16 Labs: Lab Results 02/22/25 02/22/25 Range/Units 15:16 18:05 WBC 13.5 H (4.8-10.8) X10*3/uL RBC 4.25 (4.20-5.50) X10*6/uL Hgb 9.4 L (12.0-16.0) g/dl Hct 30.6 L (37.0-47.0) % MCV 72.0 L (80.0-98.0) fL MCH 22.1 L (27.0-33.0) pg MCHC 30.7 L (31.0-35.0) g/dl RDW 16.5 H (11.0-16.0) % Plt Count 444 H (160-400) X10*3/uL MPV 9.6 (9.4-12.3) fL Immature Gran % (Auto) 0.4 (0.0-0.4) % Neut % (Auto) 86.4 H (45-73) % Lymph % (Auto) 6.4 L (20-40) % [place] % (Auto) 6.2 (2-11) % Eos % (Auto) 0.4 (0-4) % Baso % (Auto) 0.2 (0-2) % Lymph # (Auto) 0.9 L (1.2-4.9) X10*3/uL [place] # (Auto) 0.8 (0.1-1.2) X10*3/uL Eos # (Auto) 0.1 (0.0-0.4) X10*3/uL Baso # (Auto) 0.0 (0.0-0.2) X10*3/uL Abs Immat Gran (auto) 0.05 H (0.00-0.03) X10*3/uL Absolute Neuts (auto) 11.7 H (2.0-8.3) x10*3/uL Absolute Nucleated RBC 0.000 (0.0-0.012) X10*3/uL Nucleated RBC % (auto) 0.0 (0.0-0.2) /100WBC PT 11.9 (10.9-12.4) SEC INR 1.0 (0.9-1.1) Sodium 137 (135-145) mmol/L Potassium 3.7 (3.3-5.1) mmol/L Chloride 104 (96-108) mmol/L Carbon Dioxide 24 (22-29) mmol/L Anion Gap 13 (12-20) BUN 10 (9-16) mg/dL Creatinine 0.69 (0.5-1.4) mg/dL Estim Creat Clear Calc 103.9 Estimated GFR > 60 Random Glucose 115 (60-115) mg/dL Calcium 9.2 (8.4-10.2) mg/dL Magnesium 1.9 (1.6-2.6) mg/dL Total Bilirubin 1.0 (0.0-1.0) mg/dL AST 23 (5-31) U/L ALT 16 (0-31) U/L Alkaline Phosphatase 100 (39-117) U/L Troponin I High Sens < 2.7 (<3.5-17.0) ng/L Total Protein 7.7 (6.5-8.0) g/dL Albumin 4.3 (3.5-5.0) g/dL Lipase 14 (8-78) U/L Urine Color Yellow Urine Appearance Clear Urine pH 6.5 (5.0-9.0) Ur Specific [place] <= 1.005 (1.005-1.025) Urine Protein Negative (Neg-Trace) mg/dL Urine Glucose (UA) Negative (Negative) mg/dL Urine Ketones 15 (Negative) mg/dL Urine Blood Negative (Negative) Urine Nitrite Negative (Negative) Ur Leukocyte Esterase Negative (Negative) Discharge Plan Discharge Clinical Impression: Acute appendicitis Patient Disposition: Admitted As Inpatient Print Language: Sammarinese
--- NOTE | 2025-02-22 15:05 | ECG_ITS ---
Test Reason : abd pain Blood Pressure : */* mmHG Vent. Rate : 79 BPM Atrial Rate : 79 BPM P-R Int : 136 ms QRS Dur : 74 ms QT Int : 366 ms P-R-T Axes : 44 41 17 degrees QTcB Int : 419 ms Normal sinus rhythm Possible Left atrial enlargement Nonspecific ST abnormality Abnormal ECG When compared with ECG of 30-Apr-2022 19:04, No significant change was found Referred By: Fatmata Montano Electronically Signed By: Bishop Boyd
[2025-02-22 15:20] LABS: MANUAL DIFF FLAG NO
[2025-02-22 15:22] LABS: Hematocrit 30.6 % (37.0-47.0); Hemoglobin 9.4 g/dl (12.0-16.0); Imm Gran Abs Auto 0.05 X10*3/uL (0.00-0.03); Imm Gran Pct Auto 0.4 % (0.0-0.4); Lymphocytes Absolute Auto 0.9 X10*3/uL (1.2-4.9); Mean Corpuscular HGB Conc 30.7 g/dl (31.0-35.0); Mean Corpuscular Hemoglobin 22.1 pg (27.0-33.0); Mean Corpuscular Volume 72.0 fL (80.0-98.0); NRBC Abs Auto 0.000 X10*3/uL (0.0-0.012); NRBC Pct Auto 0.0 /100WBC (0.0-0.2); Platelet Count 444 X10*3/uL (160-400); Red Blood Count 4.25 X10*6/uL (4.20-5.50); White Blood Count 13.5 X10*3/uL (4.8-10.8)
[2025-02-22 15:32] LABS: INTERNATIONAL NORM RATIO 1.0 (0.9-1.1); Prothrombin Time 11.9 SEC (10.9-12.4)
[2025-02-22 15:35] LABS: Alanine Aminotransferase 16 U/L (0-31); Albumin Level 4.3 g/dL (3.5-5.0); Alkaline Phosphatase 100 U/L (39-117); Anion Gap 13 (12-20); Aspartate Amino Transferase 23 U/L (5-31); Blood Urea Nitrogen 10 mg/dL (9-16); Calcium 9.2 mg/dL (8.4-10.2); Carbon Dioxide 24 mmol/L (22-29); Chloride 104 mmol/L (96-108); Creatinine Clr Calc Pharmacy 103.9; Estimated Glomerular Filt Rate > 60; Lipase 14 U/L (8-78); Magnesium 1.9 mg/dL (1.6-2.6); Potassium 3.7 mmol/L (3.3-5.1); Sodium 137 mmol/L (135-145); Total Protein 7.7 g/dL (6.5-8.0)
[2025-02-22 15:43] LABS: Troponin-I High Sensitivity < 2.7 ng/L (<3.5-17.0)
[2025-02-22 18:00] VITALS: BP 191/94; PULSE 78; RESP 18; TEMP 36.8; O2SAT 98
--- NOTE | 2025-02-22 18:16 | ED_ITS ---
HPI - Abdominal Pain General Chief Complaint: Abdominal Pain Stated Complaint: abd pain Time Seen by Provider: 02/22/25 17:27 History of Present Illness HPI narrative: Patient is a 49-year-old female presents today with having abdominal pain. The pain is over the left upper quadrant. It has been ongoing since 04:00. Associated with nausea there is no fever no chills. Pain is worse with movement. There is no diarrhea. Has a history of gastric bypass in 2018. No fever no chills. No pain on urination. Patient is from home. No coughing or congestion or upper respiratory symptoms. Related Data Previous Rx's ?Medication ?Instructions ?Recorded ondansetron 4 mg disintegrating 4 mg PO Q8H PRN nausea and 06/22/21 tablet vomiting #20 tabs prednisone 50 mg tablet 50 mg PO DAILY #4 tabs 07/21 albuterol sulfate 90 mcg/actuation 2 puff inhalation Q 4-6H PRN 07/22/21 aerosol inhaler shortness of breath or wheez ing #8.5 grams albuterol sulfate 90 mcg/actuation 1 inh inhalation QI D PRN shortness 02/24/22 aerosol inhaler of breath or wheezing #6.7 g светлана azithromycin 250 mg tablet See Rx Instructions PO .COM PLEX #6 02/24/22 (Zithromax Z-Kendell) tabs benzonatate 100 mg capsule 100 mg PO TID PRN cough #30 caps 02/24/22 prednisone 20 mg tablet 40 mg (2 x 20 mg) PO DAILY # 10 tabs 02/24/22 cefuroxime axetil 250 mg tablet 250 mg PO Q12H #14 tab s 01/15/25 Allergies Allergy/AdvReac Type Severity Reaction Status Date / Time penicillin V Allergy Unknown throat Verified 02/22/25 14:54 closes up Penicillins (PENICILLINS) Allergy Unknown THROAT Verified 02/22/25 14:54 CLOSES AND RASH Review of Systems Review of Systems Positive abdominal pain Yes all other systems are reviewed and are negative [facility] Past Medical History Attestation statement: The following information was validated with the patient. Medical History Asthma HTN (hypertension) Surgical History H/O gastric bypass Social History Social History Unable to assess alcohol history related to: Unknown Patient Tobacco Use Status: Never used Tobacco Advance Directives: No Advance Directives Information Provided: No Do you have a plan to hurt others: No Plan Physical Exam ED Exam Exam: Appearance: Alert. Oriented X3. No acute distress. Eyes: Pupils equal, round and reactive to light. ENT: Pharynx normal. Neck: Normal inspection. Neck supple. No lymph nodes noted. No crepitus CVS: Normal heart rate and rhythm. Pulses normal. Normal S1 and S2 Respiratory: No respiratory distress. Breath sounds normal. No Wheezing. No rales Abdomen: Soft and nontender. No rigidity. No distention. good BS x4 Skin: Skin warm and dry. Normal skin color. Normal skin turgor. Extremities: No lower extremity edema. Neurovascular intact to all extremities. No Lacerations. No Rash Neuro: Oriented X 3. No motor deficit. No sensory deficit. Moving all extermities. No slurred speech Vital Signs: Vital Signs - 24 hr 02/22/25 14:51 02/22/25 18:00 Temperature 97.4 F 98.3 F Pulse Rate 81 78 Respiratory Rate 16 18 Blood Pressure 152/75 H 191/94 H Pulse Oximetry 100 98 Oxygen Delivery Method Room Air Room Air BMI result Body Mass Index 32.1 Medical Decision Making Medical Decision Making [facility] Narrative: Patient complaining of left-sided abdominal pain. On exam has more diffuse tenderness although there is no rebound. White count was 13. We got a CT scan of the abdomen pelvis. CT scan positive for a 1.5 cm appendix consistent with appendicitis. Started patient on Cipro and Flagyl. Patient to be admitted. Electrolytes are unremarkable. Urine is negative for infection. Differential Diagnosis Differential Diagnoses: The differential diagnosis associated with the presentation includes Admission/Observation Consideration of admission/observation: Escalation of care including admission/observation considered We discussed the case with surgery. Will need to be admitted. Consult Healthcare Provider Management of the patient was discussed with: Eligibility Counselor (CT scan positive for appendicitis. Surgery consulted will be admitted.) Lab Data [facility] Lab Attestation statement: I reviewed the patient's lab results. 02/22/25 15:16 02/22/25 15:16 Labs: Lab Results 02/22/25 02/22/25 Range/Units 15:16 18:05 WBC 13.5 H (4.8-10.8) X10*3/uL RBC 4.25 (4.20-5.50) X10*6/uL Hgb 9.4 L (12.0-16.0) g/dl Hct 30.6 L (37.0-47.0) % MCV 72.0 L (80.0-98.0) fL MCH 22.1 L (27.0-33.0) pg MCHC 30.7 L (31.0-35.0) g/dl RDW 16.5 H (11.0-16.0) % Plt Count 444 H (160-400) X10*3/uL MPV 9.6 (9.4-12.3) fL Immature Gran % (Auto) 0.4 (0.0-0.4) % Neut % (Auto) 86.4 H (45-73) % Lymph % (Auto) 6.4 L (20-40) % [place] % (Auto) 6.2 (2-11) % Eos % (Auto) 0.4 (0-4) % Baso % (Auto) 0.2 (0-2) % Lymph # (Auto) 0.9 L (1.2-4.9) X10*3/uL [place] # (Auto) 0.8 (0.1-1.2) X10*3/uL Eos # (Auto) 0.1 (0.0-0.4) X10*3/uL Baso # (Auto) 0.0 (0.0-0.2) X10*3/uL Abs Immat Gran (auto) 0.05 H (0.00-0.03) X10*3/uL Absolute Neuts (auto) 11.7 H (2.0-8.3) x10*3/uL Absolute Nucleated RBC 0.000 (0.0-0.012) X10*3/uL Nucleated RBC % (auto) 0.0 (0.0-0.2) /100WBC PT 11.9 (10.9-12.4) SEC INR 1.0 (0.9-1.1) Sodium 137 (135-145) mmol/L Potassium 3.7 (3.3-5.1) mmol/L Chloride 104 (96-108) mmol/L Carbon Dioxide 24 (22-29) mmol/L Anion Gap 13 (12-20) BUN 10 (9-16) mg/dL Creatinine 0.69 (0.5-1.4) mg/dL Estim Creat Clear Calc 103.9 Estimated GFR > 60 Random Glucose 115 (60-115) mg/dL Calcium 9.2 (8.4-10.2) mg/dL Magnesium 1.9 (1.6-2.6) mg/dL Total Bilirubin 1.0 (0.0-1.0) mg/dL AST 23 (5-31) U/L ALT 16 (0-31) U/L Alkaline Phosphatase 100 (39-117) U/L Troponin I High Sens < 2.7 (<3.5-17.0) ng/L Total Protein 7.7 (6.5-8.0) g/dL Albumin 4.3 (3.5-5.0) g/dL Lipase 14 (8-78) U/L Urine Color Yellow Urine Appearance Clear Urine pH 6.5 (5.0-9.0) Ur Specific [place] <= 1.005 (1.005-1.025) Urine Protein Negative (Neg-Trace) mg/dL Urine Glucose (UA) Negative (Negative) mg/dL Urine Ketones 15 (Negative) mg/dL Urine Blood Negative (Negative) Urine Nitrite Negative (Negative) Ur Leukocyte Esterase Negative (Negative) Independent Interpretation I performed an independent interpretation of an: CT Scan (CT positive for appendicitis) Radiology Impression Discussion of test interpretation with radiology: I have reviewed the radiologist's reading. External Record Review External record reviewed: Inpatient record Social Determinants Patient?s care significantly limited by Social Determinants of Health including: Problems related to primary support group Medications Administered Discontinued Medications Generic Name Dose Route Start Last Admin Trade Name Freq PRN Reason Stop Dose Admin Hydromorphone HCl 0.5 mg 02/22/25 18:14 02/22/25 18:32 Hydromorphone Hcl 0.5 Mg/0.5 Ml Syringe IVPUSH 02/22/25 18:15 0.5 mg ONCE ONE Administration Protocol Sodium Chloride 1,000 mls @ 999 mls/hr 02/22/25 18:15 02/22/25 19:59 Ns IV 02/22/25 19:15 Infused .Q1H1M NEHEMIAH Infusion Iohexol 85 ml 02/22/25 20:26 02/22/25 20:27 Iohexol 350 Mg/Ml 100 Ml Infus..Btl IV 02/22/25 20:27 85 ml ONCE ONE Administration Ondansetron HCl 4 mg 02/22/25 18:14 02/22/25 18:32 Ondansetron Hcl 4 Mg/2 Ml Vial IVPUSH 02/22/25 18:15 4 mg ONCE ONE Administration Discharge Plan Discharge Clinical Impression: Acute appendicitis Patient Disposition: Admitted As Inpatient Print Language: Irish
[2025-02-22 18:24] LABS: Appearance Urine Clear; Glucose Urine UA Negative (Negative); PH 6.5 (5.0-9.0); Specific Gravity - Urine <= 1.005 (1.005-1.025)
[2025-02-22] MEDS: iohexoL 350 MG/ML 100 ML INFUS..BTL 85 ML IV (20:27)
[2025-02-22] MEDS: metroNIDAZOLE/NS 500 MG/100 ML PIGGYBACK 100 MG IV (22:18)
[2025-02-22 22:25] VITALS: BP 157/73; PULSE 77; RESP 16; TEMP 36.8; O2SAT 97
[2025-02-22] MEDS: Dextrose 5 % and Lactated Ring 1,000 ML 125 ML IVCONT (23:44)
[2025-02-23] VITALS (11 sets, daily range): BP systolic 132–155; BP diastolic 66–81; PULSE 67–90; RESP 12–18; TEMP 36.1–36.6; O2SAT 93–97
[2025-02-23] MEDS: metroNIDAZOLE/NS 500 MG/100 ML PIGGYBACK 100 MG IV (05:42)
[2025-02-23 05:45] LABS: MANUAL DIFF FLAG NO
[2025-02-23 05:50] LABS: Hematocrit 27.0 % (37.0-47.0); Hemoglobin 8.1 g/dl (12.0-16.0); Imm Gran Abs Auto 0.04 X10*3/uL (0.00-0.03); Imm Gran Pct Auto 0.4 % (0.0-0.4); Lymphocytes Absolute Auto 1.3 X10*3/uL (1.2-4.9); Mean Corpuscular HGB Conc 30.0 g/dl (31.0-35.0); Mean Corpuscular Hemoglobin 21.8 pg (27.0-33.0); Mean Corpuscular Volume 72.8 fL (80.0-98.0); NRBC Abs Auto 0.000 X10*3/uL (0.0-0.012); NRBC Pct Auto 0.0 /100WBC (0.0-0.2); Platelet Count 344 X10*3/uL (160-400); Red Blood Count 3.71 X10*6/uL (4.20-5.50); White Blood Count 10.5 X10*3/uL (4.8-10.8)
[2025-02-23 06:14] LABS: Anion Gap 12 (12-20); Blood Urea Nitrogen 7 mg/dL (9-16); Calcium 8.6 mg/dL (8.4-10.2); Carbon Dioxide 24 mmol/L (22-29); Chloride 108 mmol/L (96-108); Creatinine Clr Calc Pharmacy 111.9; Estimated Glomerular Filt Rate > 60; Potassium 3.6 mmol/L (3.3-5.1); Sodium 140 mmol/L (135-145)
[2025-02-23] MEDS: Dextrose 5 % and Lactated Ring 1,000 ML 125 ML IVCONT ×3 (06:42→21:53)
--- NOTE | 2025-02-23 07:43 | PM.HPGS ---
History of Present Illness History of Present Illness Date of Service: 02/23/25 Chief complaint: Acute appendicitis Narrative: Rima Lainez is a 49 year old female presenting with complaints of abdominal pain in the right lower quadrant. The pain began approximately 04:00 yesterday and was located in the periumbilical location. She subsequently noted the pain to increase in severity and became localized more in the left lower quadrant and right lower quadrant. She denied a previous history of similar symptoms. She reports feeling feverish with chills. Her appetite is reduced with nausea but she denies any vomiting. She subsequently presented to the emergency department and was noted to be tender in the right lower quadrant. Workup revealed an elevated WBC. CT abdomen and pelvis confirmed firmed acute appendicitis. Her past history is significant for previous gastric bypass surgery ([facility]). She denies any problems following the surgery. Review of Systems Review of Systems: Yes all other systems are reviewed and are negative PMF Past Medical History Medical History Asthma HTN (hypertension) Surgical History Surgical History H/O gastric bypass Social History Social History Household Members: Children Housing: Apartment Unable to assess alcohol history related to: Unknown Patient Tobacco Use Status: Never used Tobacco Advance Directives: No Advance Directives Information Provided: No Do you have a plan to hurt others: No Plan Patient : No : No Poor oral hygiene: No Meds Allergies Allergy/AdvReac Type Severity Reaction Status Date / Time penicillin V Allergy Unknown throat Verified 02/22/25 14:54 closes up Penicillins (PENICILLINS) Allergy Unknown THROAT Verified 02/22/25 14:54 CLOSES AND RASH Active Medications: Current Medications Hydromorphone HCl (Hydromorphone Hcl 0.5 Mg/0.5 Ml Syringe) 0.5 mg IVPUSH Q3H PRN; Protocol PRN Reason: Pain, Severe (Pain Scale 7-10) Last Admin: 02/23/25 05:50 Dose: 0.5 mg Acetaminophen (Ofirmev) 1,000 mg in 100 mls @ 400 mls/hr IV Q6H PRN PRN Reason: Pain, Mild (Pain Scale 1-3) Dextrose/Lactated Ringer's (D5lr) 1,000 mls @ 125 mls/hr IVCONT .Q8H [facility] Last Admin: 02/23/25 06:42 Dose: 125 mls/hr Metronidazole (Flagyl) 500 mg in 100 mls @ 100 mls/hr IV Q8H [facility] Last Infusion: 02/23/25 06:42 Dose: Infused Magnesium Hydroxide (Milk Of Magnesia 30 Ml Oral.Susp) 30 ml PO DAILY PRN PRN Reason: Constipation Melatonin (Melatonin 3 Mg Tablet) 6 mg PO BEDTIME PRN PRN Reason: Insomnia Ondansetron HCl (Ondansetron Hcl 4 Mg/2 Ml Vial) 4 mg IVPUSH QID PRN PRN Reason: Nausea Oxycodone HCl (Oxycodone Hcl Immed Release 5 Mg Tablet) 5 mg PO Q6H PRN PRN Reason: Pain, Moderate(Pain Scale 4-6) Sodium Chloride (0.9 % Sodium Chloride Flush 3 Ml Syringe) 3 ml IVFLUSH QSHIFT [facility] Last Admin: 02/23/25 01:16 Dose: Not Given Physical Exam Vital Signs: Vital Signs: Last Vital Signs Temp 97.5 F 02/23/25 06:00 Pulse 72 02/23/25 06:00 Resp 18 02/23/25 06:00 BP 133/74 02/23/25 06:00 Pulse Ox 94 02/23/25 06:00 O2 Del Method Room Air 02/23/25 06:00 BMI result Body Mass Index 32.1 Const: General: cooperative and no acute distress Nutritional Appearance: well nourished Orientation/consciousness: patient oriented x3 Limitations: no limitations HEENT: Head: Yes normocephalic and Yes atraumatic Ears: hearing grossly normal bilaterally Resp: Effort & Inspection: normal respiratory effort, no audible wheezes, no cough and no respiratory distress Cardio: Jugular venous distension: no JVD GI: Inspection: Yes normal to inspection Palpation (GI): Soft to palpation, Tenderness to palpation present (GI) in the LLQ, in the RLQ and with rebound tenderness, no guarding and not rigid Percussion: Yes normal to percussion Auscultation: normal bowel sounds Rectal Exam - Female: deferred Skin: Other: Warm, dry, no rash Neuro: General: patient oriented x3 Extrem: General: Yes no clubbing, cyanosis or edema Results Results Labs: Short CBC 02/22/25 02/23/25 Range/Units 15:16 05:27 WBC 13.5 H 10.5 (4.8-10.8) X10*3/uL Hgb 9.4 L 8.1 L (12.0-16.0) g/dl Hct 30.6 L 27.0 L (37.0-47.0) % Plt Count 444 H 344 (160-400) X10*3/uL BMP 02/22/25 02/23/25 15:16 05:27 Sodium 137 140 Potassium 3.7 3.6 Chloride 104 108 Carbon Dioxide 24 24 BUN 10 7 L Creatinine 0.69 0.64 Calcium 9.2 8.6 D Liver Function 02/22/25 Range/Units 15:16 Total Bilirubin 1.0 (0.0-1.0) mg/dL AST 23 (5-31) U/L ALT 16 (0-31) U/L Alkaline Phosphatase 100 (39-117) U/L Albumin 4.3 (3.5-5.0) g/dL Urine 02/22/25 Range/Units 18:05 Urine Color Yellow Urine Appearance Clear Urine pH 6.5 (5.0-9.0) Ur Specific [place] <= 1.005 (1.005-1.025) Urine Protein Negative (Neg-Trace) mg/dL Urine Glucose (UA) Negative (Negative) mg/dL Abdomen CT scan report/results: image reviewed CT scan - pelvis: image reviewed Assessment and Plan (1) Acute appendicitis: Qualifiers: Acute appendicitis type: with localized peritonitis Appendicitis gangrene presence: without gangrene Appendicitis perforation presence: without perforation Appendicitis abscess presence: without abscess Qualified Code(s): K35.30 - Acute appendicitis with localized peritonitis, without perforation or gangrene Status: Acute Plan 49-year-old female patient presenting with complaints of abdominal pain in the right lower quadrant found on workup to have a thickened appendix with inflammatory changes consistent with acute appendicitis. We discussed treatment with antibiotics however I recommended a laparoscopic or possible open appendectomy due to the size of her appendix as well as the surrounding inflammatory changes. After discussion of the procedure, risks, and alternatives, she consents to a laparoscopic or possible open appendectomy. She has been added onto the operative schedule for today. She is NPO and on IV antibiotics. Quality Stroke Does the patient have a stroke diagnosis?: No VTE Prior VTE?: No VTE Risk Level:: Surgical - moderate VTE Device Contraindication: N/A - Device Ordered VTE Drug Contraindication: Treatment Not Indicated Procedures Date of Service Date of Service: 02/23/25
--- NOTE | 2025-02-23 07:44 | PM.HPGS ---
History of Present Illness History of Present Illness Date of Service: 02/23/25 Chief complaint: Acute appendicitis Narrative: Rima Lainez is a 49 year old female with PMH of hypertension, hx of lap gastric bypass (2018, [facility]) presenting with acute onset of epigastric/mid abdominal pain. She reports it awoke her out of sleep yesterday morning at 4am. It began to worsen and severity. It was associated with nausea without vomiting and chills. PMFSH Past Medical History Medical History Asthma HTN (hypertension) Surgical History Surgical History H/O gastric bypass Social History Social History Household Members: Children Housing: Apartment Unable to assess alcohol history related to: Unknown Patient Tobacco Use Status: Never used Tobacco Advance Directives: No Advance Directives Information Provided: No Do you have a plan to hurt others: No Plan Patient : No : No Poor oral hygiene: No Meds Allergies Allergy/AdvReac Type Severity Reaction Status Date / Time penicillin V Allergy Unknown throat Verified 02/22/25 14:54 closes up Penicillins (PENICILLINS) Allergy Unknown THROAT Verified 02/22/25 14:54 CLOSES AND RASH Active Medications: Current Medications Hydromorphone HCl (Hydromorphone Hcl 0.5 Mg/0.5 Ml Syringe) 0.5 mg IVPUSH Q3H PRN; Protocol PRN Reason: Pain, Severe (Pain Scale 7-10) Last Admin: 02/23/25 05:50 Dose: 0.5 mg Acetaminophen (Ofirmev) 1,000 mg in 100 mls @ 400 mls/hr IV Q6H PRN PRN Reason: Pain, Mild (Pain Scale 1-3) Dextrose/Lactated Ringer's (D5lr) 1,000 mls @ 125 mls/hr IVCONT .Q8H [facility] Last Admin: 02/23/25 06:42 Dose: 125 mls/hr Metronidazole (Flagyl) 500 mg in 100 mls @ 100 mls/hr IV Q8H [facility] Last Infusion: 02/23/25 06:42 Dose: Infused Magnesium Hydroxide (Milk Of Magnesia 30 Ml Oral.Susp) 30 ml PO DAILY PRN PRN Reason: Constipation Melatonin (Melatonin 3 Mg Tablet) 6 mg PO BEDTIME PRN PRN Reason: Insomnia Ondansetron HCl (Ondansetron Hcl 4 Mg/2 Ml Vial) 4 mg IVPUSH QID PRN PRN Reason: Nausea Oxycodone HCl (Oxycodone Hcl Immed Release 5 Mg Tablet) 5 mg PO Q6H PRN PRN Reason: Pain, Moderate(Pain Scale 4-6) Sodium Chloride (0.9 % Sodium Chloride Flush 3 Ml Syringe) [facility] Last Admin: 02/23/25 01:16 Dose: Not Given Physical Exam Vital Signs: Vital Signs: Last Vital Signs Temp 97.5 F 02/23/25 06:00 Pulse 72 02/23/25 06:00 Resp 18 02/23/25 06:00 BP 133/74 02/23/25 06:00 Pulse Ox 94 02/23/25 06:00 O2 Del Method Room Air 02/23/25 06:00 BMI result Body Mass Index 32.1 Results Results Labs: Short CBC 02/22/25 02/23/25 Range/Units 15:16 05:27 WBC 13.5 H 10.5 (4.8-10.8) X10*3/uL Hgb 9.4 L 8.1 L (12.0-16.0) g/dl Hct 30.6 L 27.0 L (37.0-47.0) % Plt Count 444 H 344 (160-400) X10*3/uL BMP 02/22/25 02/23/25 15:16 05:27 Sodium 137 140 Potassium 3.7 3.6 Chloride 104 108 Carbon Dioxide 24 24 BUN 10 7 L Creatinine 0.69 0.64 Calcium 9.2 8.6 D Liver Function 02/22/25 Range/Units 15:16 Total Bilirubin 1.0 (0.0-1.0) mg/dL AST 23 (5-31) U/L ALT 16 (0-31) U/L Alkaline Phosphatase 100 (39-117) U/L Albumin 4.3 (3.5-5.0) g/dL Urine 02/22/25 Range/Units 18:05 Urine Color Yellow Urine Appearance Clear Urine pH 6.5 (5.0-9.0) Ur Specific [place] <= 1.005 (1.005-1.025) Urine Protein Negative (Neg-Trace) mg/dL Urine Glucose (UA) Negative (Negative) mg/dL Quality VTE VTE Risk Level:: Surgical - moderate VTE Device Contraindication: N/A - Device Ordered VTE Drug Contraindication: Treatment Not Indicated Procedures Date of Service Date of Service: 02/23/25
--- NOTE | 2025-02-23 08:20 | HO.ANESPROP2 ---
HPI - Anesthesia Eval Consult details Narrative: lap appy PMFSH Active Problems Active Problems: All Active Problems Acute appendicitis (Acute) Past Medical History Medical History Asthma HTN (hypertension) Family History Family history of problems with anesthesia: No Surgical History Surgical History H/O gastric bypass History of Problems with Anesthesia: No Social History Social History Household Members: Children Housing: Apartment Unable to assess alcohol history related to: Unknown Patient Tobacco Use Status: Never used Tobacco Advance Directives: No Advance Directives Information Provided: No Do you have a plan to hurt others: No Plan Patient : No : No Poor oral hygiene: No Meds Allergies Allergy/AdvReac Type Severity Reaction Status Date / Time penicillin V Allergy Unknown throat Verified 02/22/25 14:54 closes up Penicillins (PENICILLINS) Allergy Unknown THROAT Verified 02/22/25 14:54 CLOSES AND RASH Active Medications: Current Medications Hydromorphone HCl (Hydromorphone Hcl 0.5 Mg/0.5 Ml Syringe) 0.5 mg IVPUSH Q3H PRN; Protocol PRN Reason: Pain, Severe (Pain Scale 7-10) Last Admin: 02/23/25 05:50 Dose: 0.5 mg Acetaminophen (Ofirmev) 1,000 mg in 100 mls @ 400 mls/hr IV Q6H PRN PRN Reason: Pain, Mild (Pain Scale 1-3) Dextrose/Lactated Ringer's (D5lr) 1,000 mls @ 125 mls/hr IVCONT .Q8H [facility] Last Admin: 02/23/25 06:42 Dose: 125 mls/hr Metronidazole (Flagyl) 500 mg in 100 mls @ 100 mls/hr IV Q8H [facility] Last Infusion: 02/23/25 06:42 Dose: Infused Magnesium Hydroxide (Milk Of Magnesia 30 Ml Oral.Susp) 30 ml PO DAILY PRN PRN Reason: Constipation Melatonin (Melatonin 3 Mg Tablet) 6 mg PO BEDTIME PRN PRN Reason: Insomnia Ondansetron HCl (Ondansetron Hcl 4 Mg/2 Ml Vial) 4 mg IVPUSH QID PRN PRN Reason: Nausea Oxycodone HCl (Oxycodone Hcl Immed Release 5 Mg Tablet) 5 mg PO Q6H PRN PRN Reason: Pain, Moderate(Pain Scale 4-6) Sodium Chloride (0.9 % Sodium Chloride Flush 3 Ml Syringe) 3 ml IVFLUSH QSHIFT [facility] Last Admin: 02/23/25 01:16 Dose: Not Given Exam Height,Weight and Vital Signs: Height 5 ft 4 in Weight 84.8 kg Last Vital Signs Temp 97.5 F 02/23/25 06:00 Pulse 72 02/23/25 06:00 Resp 18 02/23/25 06:00 BP 133/74 02/23/25 06:00 Pulse Ox 94 02/23/25 06:00 O2 Del Method Room Air 02/23/25 06:00 Pertinent Lab Results Pertinent Lab Results: Laboratory Tests 02/22/25 02/22/25 02/23/25 15:16 18:05 05:27 WBC 13.5 H 10.5 RBC 4.25 3.71 L Hgb 9.4 L 8.1 L Hct 30.6 L 27.0 L MCV 72.0 L 72.8 L MCH 22.1 L 21.8 L MCHC 30.7 L 30.0 L RDW 16.5 H 16.6 H Plt Count 444 H 344 MPV 9.6 9.9 Immature Gran % (Auto) 0.4 0.4 Neut % (Auto) 86.4 H 71.7 Lymph % (Auto) 6.4 L 12.4 L Armstrong % (Auto) 6.2 12.6 H Eos % (Auto) 0.4 2.5 Baso % (Auto) 0.2 0.4 Lymph # (Auto) 0.9 L 1.3 Armstrong # (Auto) 0.8 1.3 H Eos # (Auto) 0.1 0.3 Baso # (Auto) 0.0 0.0 Abs Immat Gran (auto) 0.05 H 0.04 H Absolute Neuts (auto) 11.7 H 7.6 Absolute Nucleated RBC 0.000 0.000 Nucleated RBC % (auto) 0.0 0.0 PT 11.9 INR 1.0 Sodium 137 140 Potassium 3.7 3.6 Chloride 104 108 Carbon Dioxide 24 24 Anion Gap 13 12 BUN 10 7 L Creatinine 0.69 0.64 Estim Creat Clear Calc 103.9 111.9 Estimated GFR > 60 > 60 Random Glucose 115 118 H Calcium 9.2 8.6 D Magnesium 1.9 Total Bilirubin 1.0 AST 23 ALT 16 Alkaline Phosphatase 100 Troponin I High Sens < 2.7 Total Protein 7.7 Albumin 4.3 Lipase 14 Urine Color Yellow Urine Appearance Clear Urine pH 6.5 Ur Specific [place] <= 1.005 Urine Protein Negative Urine Glucose (UA) Negative Urine Ketones 15 Urine Blood Negative Urine Nitrite Negative Ur Leukocyte Esterase Negative Airway Mallampati Class: II TM Dist: >3cm Neck ROM: Full Heart: rrr Lungs: cta Assessment and Plan Assessment Anesthesia Assessment: Anesthesia Plan Discussed and Chart Reviewed Final Anesthetic Review Family History of Problems with Anesthesia: No History of Problems with Anesthesia: No NPO: Yes ASA Class: II Final Preanesthetic Review: No Changes in Pt Med Stat, Meds/Allgs Chart Reviewed, Consent Obtained/Reviewed and Anes Risks/Benef Reviewed Patient Risk: Intermediate Procedure Risk: Low Anesthetic Plan Anesthetic Plan: GA and Agree w/ Assess. and Plan Disposition: Standard PACU
--- NOTE | 2025-02-23 08:45 | PC.NURSE ---
Patient denies any chance of and states she had a tubal ligation. Serum HCG already had been added on. Anestheia provider made aware and hx updated in [facility].
--- NOTE | 2025-02-23 08:45 | PC.NURSE ---
Patient has #20G IV to left forearm; patent, flushes without difficulty, positive blood return. Dressing clean dry intact.
--- NOTE | 2025-02-23 09:55 | W.PM.OPN ---
Operative Note Operative Note Date of Service: 02/23/25 Narrative: Preoperative diagnosis: Acute appendicitis Postoperative diagnosis: Same Procedure: Laparoscopic appendectomy Surgeon: Chandra Stephen MD [employer] Door Liner: Beronica Tyler PA-C; WILMAR Enriquez Anesthesia: General endotracheal Indications for procedure: 49-year-old female patient presenting with complaints of abdominal pain in the right lower quadrant found on workup to have an elevated WBC and CT findings consistent with acute appendicitis. She presents today for laparoscopic or possible open appendectomy. Operative findings: Acutely inflamed but non perforated appendix with surrounding phlegmon Specimen: Appendix Estimated blood loss: 5 mL Complications: None Procedure details: Patient was brought to the OR and placed in a supine position. After administering general anesthesia the patient's abdomen was prepped with ChloraPrep and draped in a sterile fashion. A surgical time-out was called and consent confirmed. Patient received preoperative antibiotics and Venodyne boots were in place. Local anesthesia consisting of 0.5% Sensorcaine with epinephrine was infiltrated in periumbilical region. A 5 mm incision was made below the umbilicus and carried down through subcutaneous tissue. A Veress needle was then inserted while elevating abdominal cavity with towel clips. After a positive drop test the abdomen was insufflated to a pressure of 15 mm of mercury. The Veress needle was removed and a 5 mm trocar inserted. The camera was then inserted in the abdomen explored. A 2nd 5 mm trocars placed in the lower midline. A 12 mm trocar was then placed in the left lower quadrant. The patient was then placed in a Trendelenburg position and rotated to the left. The appendix was identified in the right lower quadrant and brought up using blunt dissecting clamps. The mesentery of the appendix was then divided using the LigaSure. The appendiceal artery was cauterized and divided using the LigaSure. Dissection was continued down to the base of the cecum. An Endo-HOSSEIN stapler with a purple reload was then used to divide the appendix at the base with the cecum. The appendix was then placed in Endo-Catch bag and brought out through the left lower quadrant incision. The abdomen was then irrigated with saline solution and suctioned dry. Wounds were checked for hemostasis. CO2 was then evacuated from the abdominal cavity and all trocars removed. Fascia was closed in the left lower quadrant incision using a [id number] Polysorb suture. Skin was closed at all incisions using a subcuticular 4-0 Polysorb suture. Steri-Strips 2 x 2 gauze and Tegaderm were then applied. The patient tolerated the procedure well. Sponge, instrument, needle counts reported as correct. The patient was transferred to PACU in stable condition.
--- NOTE | 2025-02-23 12:15 | MHC.CM.PN ---
Patient comes from home w/ daughter and son in law. Functionally independent. Denies use of DME or services. PCP Brittney Fung MD No HCP. CM provided education and offered assistance. Patient declined. DP: Home self care, daughter transport. CM will continue to follow.
--- NOTE | 2025-02-23 12:53 | PHA.MEDREC ---
Pharmacy Consult ? Medication Reconciliation Pharmacy has completed the medication reconciliation. Spoke with pt to confirm meds.
[2025-02-23] MEDS: oxyCODONE HCl Immed Release 5 MG TABLET PO ×2 (16:21→23:06)
[2025-02-24 04:17] VITALS: BP 132/62; PULSE 70; RESP 16; TEMP 36.4; O2SAT 95
[2025-02-24] MEDS: Dextrose 5 % and Lactated Ring 1,000 ML 125 ML IVCONT (05:12)
[2025-02-24 06:00] VITALS: BP 134/63; PULSE 62; RESP 18; TEMP 36.4; O2SAT 96
[2025-02-24 08:00] VITALS: BP 133/88; PULSE 70
[2025-02-24] MEDS: 0.9 % Sodium Chloride Flush 3 ML SYRINGE IVFLUSH (08:03)
--- NOTE | 2025-02-24 08:22 | PM.PNGS ---
Subjective Subjective Date of Service: 02/24/25 Interval history: Feels well this morning. Reports no abdominal pain. Tolerating solid diet. OOB and ambulating without difficulty, using incentive spirometer. Wants to go home. Physical Exam Vital Signs: Vital Signs: Last Vital Signs Temp 97.6 F 02/24/25 06:00 Pulse 70 02/24/25 08:00 Resp 18 02/24/25 06:00 BP 133/88 02/24/25 08:00 Pulse Ox 96 02/24/25 06:00 O2 Del Method Room Air 02/24/25 06:00 O2 Flow Rate 6 02/23/25 10:10 BMI result Body Mass Index 32.1 Const: General: comfortable, no acute distress and alert Orientation/consciousness: patient oriented x3 Resp: Effort & Inspection: normal respiratory effort GI: Other: soft, nondistended, nontender dressings clean and intact Palpation (GI): no guarding Skin: General skin exam: no rashes or lesions noted Neuro: General: patient oriented x3 and moves all extremities Objective Data Active Medications Hydromorphone HCl (Hydromorphone Hcl 0.5 Mg/0.5 Ml Syringe) 0.5 mg IVPUSH Q3H PRN; Protocol PRN Reason: Pain, Severe (Pain Scale 7-10) Last Admin: 02/23/25 05:50 Dose: 0.5 mg Documented By: ANTOIC Acetaminophen (Ofirmev) 1,000 mg in 100 mls @ 400 mls/hr IV Q6H PRN PRN Reason: Pain, Mild (Pain Scale 1-3) Losartan Potassium (Losartan Potassium 25 Mg Tablet) 25 mg PO DAILY [facility]; Protocol Last Admin: 02/24/25 08:03 Dose: 25 mg Documented By: MOHAMER Magnesium Hydroxide (Milk Of Magnesia 30 Ml Oral.Susp) 30 ml PO DAILY PRN PRN Reason: Constipation Melatonin (Melatonin 3 Mg Tablet) 6 mg PO BEDTIME PRN PRN Reason: Insomnia Ondansetron HCl (Ondansetron Hcl 4 Mg/2 Ml Vial) 4 mg IVPUSH QID PRN PRN Reason: Nausea Oxycodone HCl (Oxycodone Hcl Immed Release 5 Mg Tablet) 5 mg PO Q6H PRN PRN Reason: Pain, Moderate(Pain Scale 4-6) Last Admin: 02/23/25 23:06 Dose: 5 mg Documented By: TORI Sodium Chloride (0.9 % Sodium Chloride Flush 3 Ml Syringe) 3 ml IVFLUSH QSHIFT [facility] Last Admin: 02/24/25 08:03 Dose: 3 ml Documented By: TAMIKA Labs 02/23/25 05:27 02/23/25 05:27 Labs: Laboratory Results - last 24 hr 02/23/25 05:27 Beta HCG, Quant < 2 Procedures Date of Service Date of Service: 02/24/25 Progress Note: A&P Assessment and plan (1) S/P laparoscopic appendectomy: Status: Acute Plan POD #1 s/p lap appy. Doing well post op, VSS. Abd exam benign with appropriate post op tenderness, dressings clean and intact. Stable for dc to home today with f/u in office in 1 week. Patient comfortable with plan. Time Spent With Patient Time: Total time managing care of this patient today ____ minutes. Quality Stroke Does the patient have a stroke diagnosis?: No VTE Prior VTE?: No VTE Risk Level:: Surgical - moderate VTE Device Contraindication: N/A - Device Ordered VTE Drug Contraindication: Treatment Not Indicated
--- NOTE | 2025-02-24 08:54 | MHC.CM.PN ---
Patient medically cleared for dc home self care via private transport.
--- NOTE | 2025-02-24 09:16 | HO.POSTANES ---
Post Anesthesia Evaluation Post Anesthesia Evaluation Date of Service: 02/24/25 Vital Signs: Vital Signs Temp Pulse Resp BP Pulse Ox O2 Del Method 02/24/25 08:00 70 133/88 02/24/25 06:00 97.6 F 62 18 134/63 96 Room Air 02/24/25 04:17 97.6 F 70 16 132/62 95 Room Air Mental Status: Awake Pain Control: Satisfactory Nausea/Vomiting: None Hydration: Adequate Anesthesia-Related Issues: No Anes. Related Issues
--- NOTE | 2025-02-24 14:25 | P.DS_ITS ---
DS: Providers Provider Date of Service: 02/24/25 Date of admission: 02/22/25 21:58 Date of discharge: 02/24/25 Primary care physician: Brittney Fung MD Attending physician on admission: Chandra Stephen Attending physician on discharge: Chandra Stephen DS: Diagnosis Discharge Diagnosis (1) S/P laparoscopic appendectomy: Status: Acute DS: Summary Hospital Course Hospital Course: HPI AT ADMISSION: Rima Lainez is a 49 year old female presenting with complaints of abdominal pain in the right lower quadrant. The pain began approximately 04:00 yesterday and was located in the periumbilical location. She subsequently noted the pain to increase in severity and became localized more in the left lower quadrant and right lower quadrant. She denied a previous history of similar symptoms. She reports feeling feverish with chills. Her appetite is reduced with nausea but she denies any vomiting. She subsequently presented to the emergency department and was noted to be tender in the right lower quadrant. Workup revealed an elevated WBC. CT abdomen and pelvis confirmed firmed acute appendicitis. Her past history is significant for previous gastric bypass surgery ([facility]). She denies any problems following the surgery. HOSPITAL COURSE: The patient was admitted to the surgical service for further treatment of the acute appendicitis. She elected to proceed with laparoscopic appendectomy. She was added onto the OR schedule for that day. On 02/23/25, a laparoscopic appendectomy was performed by Dr. Stephen without complication. The patient tolerated the procedure well. She had an uncomplicated recovery course. On POD #1, she felt well and was tolerating a solid diet without nausea or vomiting, had good pain control and was ambulating without difficulty. She was hemodynamically stable. Her abdomen was benign with appropriate post op tenderness and clean and intact dressings. She felt ready for discharge. She was discharged to home on 02/24/25 in stable condition. She is to follow up in the office in 1 week. Status at Discharge Functional status at discharge: independent ambulation Overall status at discharge: patient is progressing back to baseline Time Attestation Discharge Coordination Time (in mins): 25 Quality: Safe Use of Opioids Does Pt have an Active Cancer Diagnosis on the Problem List?: No Quality: Stroke Does the patient have a stroke diagnosis?: No Physical Exam Vital Signs: Vital Signs: Last Vital Signs Temp 97.6 F 02/24/25 06:00 Pulse 70 02/24/25 08:00 Resp 18 02/24/25 06:00 BP 133/88 02/24/25 08:00 Pulse Ox 96 02/24/25 06:00 O2 Del Method Room Air 02/24/25 06:00 O2 Flow Rate 6 02/23/25 10:10 BMI result Body Mass Index 32.1 Const: General: comfortable, no acute distress and alert Orientation/consciousness: patient oriented x3 Resp: Effort & Inspection: normal respiratory effort GI: Other: abd soft dressings clean and intact appropriate post op tenderness Skin: General skin exam: no rashes or lesions noted Neuro: General: patient oriented x3 and moves all extremities DS: Data Data Completed and Pending Pending studies at discharge: Pending at discharge 02/23/25 09:39 Surgical [PTH] Routine Discharge Plan Discharge Anticipated Discharge Date/Time: 02/24/25 05:50 Patient Disposition: Home, Self-Care Discharge Diagnosis: acute appendicitis s/p laparoscopic appendectomy Referrals: Brittney Fung MD [Primary Care Provider, Internal Medicine] - 1 Week Chandra Stephen MD [Physician, General Surgery] - 1 Week Discharge Medications: New docusate sodium [Colace] 100 mg capsule 100 mg PO BID Qty: 30 0RF oxycodone 5 mg tablet 5 mg PO Q4H PRN (Reason: pain (scale score 7-10)) Qty: 24 0RF Rx Instructions: Partial Fill upon patient request. Continued losartan 25 mg tablet 25 mg PO DAILY cetirizine 10 mg tablet 10 mg PO DAILY cholecalciferol (vitamin D3) [Vitamin D3] 25 mcg (1,000 unit) capsule 25 mcg PO DAILY acetaminophen 500 mg Tablet 1,000 mg PO QID PRN (Reason: Pain) Discharge Orders: Discharge Order (Routine); Ordered 02/24/25 Ordered By: Beronica Tyler Diet: Advance to usual diet Activity on Discharge: No heavy lifting Stand Alone Forms: Patient Portal Discharge page Print Language: Ug[place]an Activity Restrictions/Additional Instructions: If the incision area is tender, you may apply an ice pack for short intervals (No more than 20 minutes on, followed by at least 20 minutes off). Do not apply heat. Do not use creams, lotions, or topical antibiotics. Ok to shower. Remove clear dressings 3 days following your procedure. You have steri strips (small white strips) covering your incision- these will fall off ~1 week. No heavy lifting (>10lbs) or strenuous activity! Take Tylenol Extra-strength 1-2 tabs every 6 hours for the first day, then as needed. Oxycodone every 6-8 hours as needed for pain. Colace 100 mg every day as needed for constipation. Follow up in office with Dr. Stephen in 1 week. ([phone]) Call Your Doctor If: -Your temperature exceeds 101.5? F -You experience excessive pain or swelling -You have an unexpected reaction to medication -You have excessive bleeding -You experience continued vomiting/nausea -Your incision begins to separate -Your incision shows signs of infection such as increased redness, swelling, excessive pain, drainage (light blood or clear fluid is normal) or heat Care Plan Goals: Return to baseline health and resume normal activities following recovery period. Health Concerns: acute appendicitis Plan of Treatment: s/p laparoscopic appendectomy pain control follow up in office in 1 week Assessment: Improved Discharge Date/Time: 02/24/25 09:04
== END 2025-02-24 09:04 | disposition home or self-care (01) | DRG 399 ==
LOC: HO.ED 21:54 → HO.EDOVER 22:05 → HO.S3 23:25
PROVIDERS: Physician Assistant Medical; Admitting Provider Surgery; Emergency Provider Emergency Medicine Emergency Medical Services; PCP Internal Medicine; Visit Provider Surgery
PROC: 0DTJ4ZZ Resection of Appendix, Percutaneous Endoscopic Approach (ICD-10-PCS; CPT 44970; principal; 2025-02-23 09:00)
DX: K35.30 Acute appendicitis with localized peritonitis, without perforation or gangrene (principal); Z98.84 Bariatric surgery status; Z79.899 Other long term (current) drug therapy
CPT/HCPCS: 36415; 74177; 80048; 80053; 81003; 83690; 83735; 84484; 84702; 85025; 85610; 88304; 93005; 99285; J0131; J0744; J1100; J1171; J1836; J2003; J2250; J2405; J2704; J3010; Q9967

== ENCOUNTER → 2025-02-22 15:05 | Outpatient (BNV) | payer OTHER, SELFPAY | PROVIDERS: Admitting Provider Surgery; Emergency Provider Emergency Medicine Emergency Medical Services; PCP Internal Medicine; Visit Provider Internal Medicine Cardiovascular Disease | DX: R94.31 Abnormal electrocardiogram [ECG] [EKG] (principal); R10.12 Left upper quadrant pain | CPT/HCPCS: 93010 ==

== ENCOUNTER → 2025-02-22 18:14 | Outpatient (BNV) | payer OTHER, SELFPAY | PROVIDERS: Emergency Provider Emergency Medicine Emergency Medical Services; PCP Internal Medicine; Visit Provider Radiology Diagnostic Radiology | DX: K35.30 Acute appendicitis with localized peritonitis, without perforation or gangrene (principal); N83.291 Other ovarian cyst, right side | CPT/HCPCS: 74177 ==

== ENCOUNTER → 2025-02-22 21:58 | Outpatient (BNV) | payer OTHER, SELFPAY | PROVIDERS: Admitting Provider Surgery; Emergency Provider Emergency Medicine Emergency Medical Services; PCP Internal Medicine; Visit Provider Surgery | DX: Z90.49 Acquired absence of other specified parts of digestive tract (principal) | CPT/HCPCS: 44970; 99024; 99222 ==

== ENCOUNTER 2025-03-04 11:13 | Outpatient (AMB) | payer OTHER, SELFPAY ==
--- NOTE | 2025-03-04 11:14 | MHC.OFFVIS ---
Vital Signs 03/04/25 11:21 Weight 188 lb BP 141/64 H Blood Pressure Location Rt brachial Position Sitting Pulse 70 Intake Visit Reasons: S/p ja hobson Intake Note: Patient here s/p Laparoscopic appendectomy. Patient c/o: no concerns. Reports incisions healing well. Denies pain, oozing. Surgery (): 02-23-2025 [employer] Required: No Accompanied by: Self / Same As Patient Allergies penicillin V Allergy (Unknown, Verified 03/04/25 11:20) throat closes up Penicillins (PENICILLINS) Allergy (Unknown, Verified 03/04/25 11:20) THROAT CLOSES AND RASH HPI HPI S/p ja hobson: Details: Rima Lainez presents today for follow up and wound check after undergoing laparoscopic appendectomy on 02/23/[address] Hobson for acute uncomplicated appendicitis. She tolerated the procedure well. She was discharged to home the following day. She reports feeling well since. She took the oxycodone for one day after she was discharged. She currently denies any incisional pain. She is tolerating a solid diet. She is moving her bowels normally. She denies fevers, chills, diarrhea. She is asking about a hernia noted on her CT scan report. Review of her CT scan at admission shows a small paraesophageal hernia. She has a history of a gastric bypass at [facility] with [place]. She reports some reflux and burning as well as fullness and occasional vomiting after eating. She reports she had a barium swallow a few years ago which also noted a hernia. [facility] Medical History (Updated 03/04/25 @ 11:49 by Beronica Tyler PA-C) Asthma HTN (hypertension) Surgical History (Updated 03/04/25 @ 08:05 by ALLISON Bronson) S/P laparoscopic appendectomy (02/23/25) Hx of tubal ligation H/O gastric bypass Social History Household Members: Children Housing: Apartment Patient Tobacco Use Status: Never used Tobacco service: No Review of Systems Const All systems reviewed & are unremarkable except as noted in HPI and below Physical Exam Vital Signs: Last Vital Signs Pulse 70 03/04/25 11:21 BP 141/64 H 03/04/25 11:21 Const General: comfortable, no acute distress and alert Resp Effort & Inspection: normal respiratory effort GI Other: markedly corpulent abdomen Inspection: No distended and Yes incision (well healed, no erythema or edema ) Palpation (GI): Soft to palpation, nontender and no guarding Skin General skin exam: no rashes or lesions noted and no jaundice Results Reviewed Results Reviewed: Vermiform appendix, appendectomy: Acute appendicitis and periappendicitis Assessment & Plan Assessment & Plan (1) S/P laparoscopic appendectomy: Onset Date: 02/23/25 Comment: Laparoscopic appendectomy Chandra Clark Code(s): Z90.49 - Acquired absence of other specified parts of digestive tract Category: Surgical (2) Paraesophageal hernia: Code(s): K44.9 - Diaphragmatic hernia without obstruction or gangrene Category: Medical Plan 49 year old female s/p laparoscopic appendectomy on 02/23/25. She tolerated the procedure well. Her abdomen is benign with clean and well healed incisions without evidence of infection. She was instructed to continue lifting and strenuous lifting restrictions for another 2 weeks. She is otherwise doing well post operatively and can follow up as needed if she develops concerns. We did discuss her paraesophageal hernia noted on her abd/pelvis CT from her admission. She does seem to be symptomatic from this. It was recommended to follow up with her bariatric surgeon at [facility] for further treatment and possible repair. She understands and agrees with the plan. All questions answered. Medications: Discontinued oxycodone Partial Fill upon patient request. Discontinued Reason: Patient no longer taking 5 mg PO Q4H PRN 24 tabs 0RF pain (scale score 7-10) Coding Level of Care Code Global (25490) Diagnoses S/P laparoscopic appendectomy Z90.49 Paraesophageal hernia K44.9
[2025-03-04 11:21] VITALS: BP 141/64; PULSE 70
== END 2025-03-04 12:06 | disposition home or self-care (01) ==
LOC: HO.HGS 11:14
PROVIDERS: PCP Internal Medicine; Visit Provider Physician Assistant Surgical
DX: Z90.49 Acquired absence of other specified parts of digestive tract (principal); K44.9 Diaphragmatic hernia without obstruction or gangrene
CPT/HCPCS: 99024